=== PATIENT | female | born 1995 | race Caucasian/White ===

== ENCOUNTER 2023-04-08 17:54 | Emergency (ER) | payer OTHER ==
--- NOTE | 2023-04-08 18:06 | ED ---
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 She presents the ER today for evaluation of persistent infection despite recent antibiotic treatment. Patient states that about a month ago she noted these red bumps pustules on her legs she was seen at the urgent care closer to her [place] in [place]. She was prescribed 7 days of Bactrim which she completed. Patient stated that the redness and pain seem to improve during the antibiotics but since that time is progressively worsened. Today she noted worsening spreading redness on the anterior medial surface surrounding one of the pustules and was concerned the infection was getting worse so she came back to the ER. Patient denies any fevers chills nausea or vomiting. - Related Data Previous Rx's Medication Instructions Recorded Chlorhexidine Gluconate [Hibiclens] 1 applic TOPICAL DIRECTED #118 04/08/23 ml Mupirocin 2% Oint [Bactroban 2% 1 applic NASAL BID #22 gm 04/08/23 Oint] Sulfamethox-Tmp 800-160Mg [Bactrim 1 tab PO Q12HR 14 Days #28 tab 04/08/23 DS 800-160 mg] Allergies Allergy/AdvReac Type Severity Reaction Status Date / Time amoxicillin Allergy Anaphylaxis Verified 04/08/23 18:00 diphenhydramine Allergy Anaphylaxis Verified 04/08/23 18:00 [From Benadryl] piperacillin [From Zosyn] Allergy Anaphylaxis Verified 04/08/23 18:00 tazobactam [From Zosyn] Allergy Anaphylaxis Verified 04/08/23 18:00 vancomycin Allergy Anaphylaxis Verified 04/08/23 18:00 Review of Systems ROS Statement: Those systems with pertinent positive or pertinent negative responses have been documented in the HPI. ROS Other: All systems not noted in ROS Statement are negative. Past Medical History Past Medical History: Diabetes Mellitus Additional Past Medical History / Comment(s): Pots History of Any Multi-Drug Resistant Organisms: None Reported Past Surgical History: No Surgical Hx Reported Past Psychological History: ADD/ADHD Smoking Status: Current every day smoker Past Alcohol Use History: Occasional Past Drug Use History: Marijuana General Exam Limitations: no limitations General appearance: alert Head exam: Present: atraumatic Eye exam: Present: PERRL ENT exam: Present: other (Poor dentition with multiple caries) Respiratory exam: Absent: respiratory distress Cardiovascular Exam: Present: regular rate GI/Abdominal exam: Absent: distended Rectal exam: Present: deferred Extremities exam: Present: full ROM. Absent: pedal edema Neurological exam: Present: alert, oriented X3 Psychiatric exam: Present: normal affect, normal mood Skin exam: Present: other (There are multiple small pustules on the leg appears to be a folliculitis with some areas of secondary infection. Left lateral leg has large pustule that feels quite fluctuant. Medial side has a area of cellulitis approximately 4 x 6 cm.) Course Vital Signs 04/08/23 17:57 Temperature 98.4 F Pulse Rate 112 H Respiratory 20 Rate Blood Pressure 151/79 O2 Sat by Pulse 96 Oximetry Procedures - Incision & Drainage Consent Obtained: verbal consent Site: lower extremity I&D Cleaning Method: Alcohol Wipe Ultrasound used: No Needle Aspiration Performed?: Yes Irrigation Performed?: No I&D Drainage Obtained: Pus Insertion of drain: No Culture Obtained?: Yes Patient Tolerated Procedure: well, no complications Medical Decision Making - Medical Decision Making Was pt. sent in by a medical professional or institution (LAUREN Winter, PARACHUTE ACCESSORIES ATTACHER, urgent care, hospital, or long term...) When possible be specific @ -No Did you speak to anyone other than the patient for history (EMS, parent, family, police, friend...)? What history was obtained from this source @ -No Did you review nursing and triage notes (agree or disagree)? Why? @ -I reviewed and agree with nursing and triage notes Were old charts reviewed (outside hosp., previous admission, EMS record, old EKG, old radiological studies, urgent care reports/EKG's, long term records)? Report findings @ -No old charts were reviewed Differential Diagnosis (chest pain, altered mental status, abdominal pain women, abdominal pain men, vaginal bleeding, weakness, fever, dyspnea, syncope, headache, dizziness, GI bleed, back pain, seizure, CVA, palpatations, mental health)? @ -Cellulitis, abscess EKG interpreted by me (3pts min.). @ -As above X-rays interpreted by me (1pt min.). @ -None done CT interpreted by me (1pt min.). @ -None done U/S interpreted by me (1pt. min.). @ -None done What testing was considered but not performed or refused? (CT, X-rays, U/S, labs)? Why? @ -None What meds were considered but not given or refused? Why? @ -None Did you discuss the management of the patient with other professionals (professionals i.e. , PA, PARACHUTE ACCESSORIES ATTACHER, lab, RT, psych nurse, manager social responsibility, ingredient mixer, teacher, administrative services officer, porter sample case)? Give summary @ -No Was smoking cessation discussed for >3mins.? @ -No Was critical care preformed (if so, how long)? @ -No Were there social determinants of health that impacted care today? How? (Homelessness, low income, unemployed, alcoholism, drug addiction, transportation, low edu. Level, literacy, decrease access to med. care, senior care, rehab)? @ -No Was there de-escalation of care discussed even if they declined (Discuss DNR or withdrawal of care, Hospice)? DNR status @ -No What co-morbidities impacted this encounter? (DM, HTN, Smoking, COPD, CAD, Cancer, CVA, ARF, Chemo, Hep., AIDS, mental health diagnosis, sleep apnea, morbid obesity)? @ -None Was patient admitted / discharged? Hospital course, mention meds given and route, prescriptions, significant lab abnormalities, going to OR and other pertinent info. @ -Discharged The patient was seen and evaluated, history was obtained from the patient. Physical exam reveals multiple pustules. Pustule in the left lateral leg was unroofed with a 16-gauge needle and approximately 2 cc of purulent Brad and was drained a culture was obtained. Pustule on the medial side was also unroofed but less than 1 cc of fluid was drained. Patient will be treated with a longer course of Bactrim because she responded to this recently. I also discussed with patient decontamination of MRSA with Hibiclens and mupirocin. Both of these were prescribed. Undiagnosed new problem with uncertain prognosis? @ -No Drug Therapy requiring intensive monitoring for toxicity (Heparin, Nitro, Insulin, Cardizem)? @ -No Were any procedures done? @ -Yes, I&D Diagnosis/symptom? @ -Abscess and cellulitis Acute, or Chronic, or Acute on Chronic? @ -Acute, recurrent Uncomplicated (without systemic symptoms) or Complicated (systemic symptoms)? @ -Uncomplicated Side effects of treatment? @ -No Exacerbation, Progression, or Severe Exacerbation? @ -No Poses a threat to life or bodily function? How? (Chest pain, USA, [place], pneumonia, PE, COPD, DKA, ARF, appy, cholecystitis, CVA, Diverticulitis, Homicidal, Suicidal, threat to staff... and all critical care pts) @ -Unlikely Disposition Clinical Impression: Cellulitis and abscess of left leg Disposition: HOME SELF-CARE Condition: Stable Additional Instructions: As discussed you are going to do a longer course of Bactrim, 14 days You can also begin the MRSA decontamination protocol. You are to shower and wash with the Hibiclens soap from the neck down 2 times daily for 5 days 2 times a month on those same days apply the mupirocin ointment into your nose twice daily. I recommend doing this on the -5 and the 15- Prescriptions: Sulfamethox-Tmp 800-160Mg [Bactrim DS 800-160 mg] 1 tab PO Q12HR 14 Days #28 tab Mupirocin 2% Oint [Bactroban 2% Oint] 1 applic NASAL BID #22 gm Chlorhexidine Gluconate [Hibiclens] 1 applic TOPICAL DIRECTED #118 ml Is patient prescribed a controlled substance at d/c from ED?: No Referrals: None,Stated [Primary Care Provider] - 1-2 days
[2023-04-08 18:14] VITALS: TEMP 98.4
[2023-04-08 19:36] VITALS: BP 136/78; PULSE 68; RESP 18
== END 2023-04-08 19:17 | disposition home or self-care (01) ==
LOC: EC 17:54
DX: L03.116 Cellulitis of left lower limb (principal); L02.416 Cutaneous abscess of left lower limb; E11.9 Type 2 diabetes mellitus without complications; F17.200 Nicotine dependence, unspecified, uncomplicated; F12.90 Cannabis use, unspecified, uncomplicated; Z86.59 Personal history of other mental and behavioral disorders; Z88.0 Allergy status to penicillin; Z88.1 Allergy status to other antibiotic agents; Z88.8 Allergy status to other drugs, medicaments and biological substances
CPT/HCPCS: 10060; 87070; 87205; 99282

== ENCOUNTER 2023-06-10 21:51 | Emergency (ER) | payer OTHER ==
[2023-06-10] MEDS: ONDANSETRON ODT 8 MG TAB.RAPDIS PO STA (22:47)
[2023-06-10 23:08] LABS: Basophils % (A) 0 %; Eosinophils # (A) 0.1 k/uL (0-0.7); Eosinophils % (A) 1 %; HCT 40.9 % (34.0-46.0); HGB 13.7 gm/dL (11.4-16.0); Lymphocytes % (A) 15 %; MCH 27.2 pg (25.0-35.0); MCHC 33.4 g/dL (31.0-37.0); MCV 81.2 fL (80.0-100.0); Monocytes # (A) 0.2 k/uL (0-1.0); Monocytes % (A) 3 %; Neutrophils # (A) 5.1 k/uL (1.3-7.7); Neutrophils % (A) 79 %; Platelet Count 225 k/uL (150-450); RBC 5.03 m/uL (3.80-5.40); RDW 13.3 % (11.5-15.5); WBC 6.4 k/uL (3.8-10.6)
[2023-06-10] MEDS: ACETAMINOPHEN TAB 500 MG TAB PO STA (23:08)
[2023-06-10] MEDS: IBUPROFEN 600 MG TAB PO STA (23:08)
[2023-06-10 23:18] LABS: Appearance,Urine Clear (Clear); Bilirubin,Urine Negative (Negative); Blood,Urine Negative (Negative); Color,Urine Yellow; Glucose,Urine (UA) 4+ (Negative); Ketones,Urine Negative (Negative); Leukocyte Esterase,Urine Negative (Negative); Nitrite,Urine Negative (Negative); PH, Urine 5.5 (5.0-8.0); Protein,Urine Negative (Negative); Specific Gravity,Urine 1.032 (1.001-1.035); Urobilinogen,Urine <2.0 mg/dL (<2.0)
[2023-06-11 00:21] LABS: ALT 13 U/L (4-34); AST 18 U/L (14-36); African American GFR (CKD) >90 (>60 ml/min/1.73 sqM); Albumin 3.9 g/dL (3.5-5.0); Alkaline Phosphatase 92 U/L (38-126); Amylase 44 U/L (30-110); Anion Gap 10 mmol/L; Blood Urea Nitrogen 13 mg/dL (7-17); Calcium 9.2 mg/dL (8.4-10.2); Carbon Dioxide 15 mmol/L (22-30); Chloride 108 mmol/L (98-107); Glucose 308 mg/dL (74-99); Lipase 82 U/L (23-300); Non-African American GFR(CKD) >90 (>60 ml/min/1.73 sqM); Potassium 4.6 mmol/L (3.5-5.1); Sodium 133 mmol/L (137-145); Total Bilirubin 0.8 mg/dL (0.2-1.3); Total Protein 6.9 g/dL (6.3-8.2)
[2023-06-11 00:32] VITALS: RESP 18
--- NOTE | 2023-06-11 00:55 | XR ---
EXAM: XR Abdomen, 1 View CLINICAL HISTORY: ITS.REASON XR Reason: abdominal pain TECHNIQUE: Frontal supine view of the abdomen/pelvis. COMPARISON: No relevant prior studies available. FINDINGS: Gastrointestinal tract: Air distended small bowel measuring up to 4.4 cm, concerning for bowel obstruction. Recommend CT scan of the abdomen and pelvis. Bones/joints: Unremarkable. No acute fracture. IMPRESSION: Air distended small bowel measuring up to 4.4 cm, concerning for bowel obstruction. Recommend CT scan of the abdomen and pelvis.
--- NOTE | 2023-06-11 02:11 | CT ---
EXAM: CT Abdomen and Pelvis With Intravenous Contrast CLINICAL HISTORY: ITS.REASON CT Reason: lower abdominal pain TECHNIQUE: Axial computed tomography images of the abdomen and pelvis with intravenous contrast. CTDI is 27 mGy and DLP is 1476.8 mGy-cm. This CT exam was performed using one or more of the following dose reduction techniques: automated exposure control, adjustment of the mA and/or kV according to patient size, and/or use of iterative reconstruction technique. COMPARISON: No relevant prior studies available. FINDINGS: Lung bases: Unremarkable. No mass. No consolidation. ABDOMEN: Liver: Unremarkable. No mass. Gallbladder and bile ducts: Unremarkable. No calcified stones. No ductal dilation. Pancreas: Unremarkable. No mass. No ductal dilation. Spleen: Unremarkable. No splenomegaly. Adrenals: Unremarkable. No mass. Kidneys and ureters: Unremarkable. No solid mass. No hydronephrosis. Stomach and bowel: Liquid stool in the colon, with diarrheal disease. No obstruction. No mucosal thickening. PELVIS: Appendix: No findings to suggest acute appendicitis. Bladder: Unremarkable. No mass. Reproductive: Unremarkable as visualized. ABDOMEN and PELVIS: Intraperitoneal space: Unremarkable. No free air. No significant fluid collection. Bones/joints: No acute fracture. No dislocation. Soft tissues: Unremarkable. Vasculature: Unremarkable. No abdominal aortic aneurysm. Lymph nodes: Unremarkable. No enlarged lymph nodes. IMPRESSION: Liquid stool in the colon, with diarrheal disease.
[2023-06-11] MEDS: SODIUM CHLORIDE 0.9% 500 ML 500 ML IV ONE (02:15)
[2023-06-11] MEDS: SODIUM CHLORIDE 0.9% 1,000 ML IV ONE (02:15)
--- NOTE | 2023-06-11 03:15 | ED ---
Abdominal Pain HPI - General Chief Complaint: Abdominal Pain Stated Complaint: Vomiting Source: patient Mode of arrival: ambulatory Limitations: no limitations - History of Present Illness Initial Comments: 27-year-old female presenting to the ED with complaints of nausea vomiting diarrhea. Patient reports for the last 2 weeks has had some lower abdominal pain. Over the past 2 days has developed nausea, vomiting, nonbloody diarrhea. No fever or chills. No chest pain shortness of breath. No other complaints at this time. - Related Data Previous Rx's Medication Instructions Recorded Chlorhexidine Gluconate [Hibiclens] 1 applic TOPICAL DIRECTED #118 04/08/23 ml Mupirocin 2% Oint [Bactroban 2% 1 applic NASAL BID #22 gm 04/08/23 Oint] Sulfamethox-Tmp 800-160Mg [Bactrim 1 tab PO Q12HR 14 Days #28 tab 04/08/23 DS 800-160 mg] Loperamide [Imodium] 2 mg PO DIRECTED #16 capsule 06/11/23 Allergies Allergy/AdvReac Type Severity Reaction Status Date / Time amoxicillin Allergy Anaphylaxis Verified 06/10/23 22:09 diphenhydramine Allergy Anaphylaxis Verified 06/10/23 22:09 [From Benadryl] piperacillin [From Zosyn] Allergy Anaphylaxis Verified 06/10/23 22:09 tazobactam [From Zosyn] Allergy Anaphylaxis Verified 06/10/23 22:09 vancomycin Allergy Anaphylaxis Verified 06/10/23 22:09 Review of Systems ROS Statement: Those systems with pertinent positive or pertinent negative responses have been documented in the HPI. ROS Other: All systems not noted in ROS Statement are negative. Past Medical History Past Medical History: Diabetes Mellitus Additional Past Medical History / Comment(s): Pots History of Any Multi-Drug Resistant Organisms: None Reported Past Surgical History: No Surgical Hx Reported Past Psychological History: ADD/ADHD Smoking Status: Current every day smoker Past Alcohol Use History: Occasional Past Drug Use History: Marijuana General Exam Limitations: no limitations General appearance: alert, in no apparent distress Eye exam: Present: normal appearance Neck exam: Present: normal inspection Respiratory exam: Present: normal lung sounds bilaterally GI/Abdominal exam: Present: soft (Diffuse lower abdominal tenderness to palpation. No rebound guarding or rigidity.) Neurological exam: Present: alert, oriented X3 Skin exam: Present: warm, dry Course Vital Signs 06/10/23 06/11/23 06/11/23 22:06 00:14 02:14 Temperature 102.9 F H 100.8 F H 98.3 F Pulse Rate 109 H 98 70 Respiratory 20 18 18 Rate Blood Pressure 148/90 120/83 104/70 O2 Sat by Pulse 99 100 99 Oximetry Medical Decision Making - Medical Decision Making Was pt. sent in by a medical professional or institution (, PA, SLICE CUTTING MACHINE OPERATOR, urgent care, hospital, or [facility]...) When possible be specific @ -No Did you speak to anyone other than the patient for history (EMS, parent, family, police, friend...)? What history was obtained from this source @ -No Did you review nursing and triage notes (agree or disagree)? Why? @ -I reviewed and agree with nursing and triage notes Were old charts reviewed (outside hosp., previous admission, EMS record, old EKG, old radiological studies, urgent care reports/EKG's, [facility] records)? Report findings @ -No old charts were reviewed Differential Diagnosis (chest pain, altered mental status, abdominal pain women, abdominal pain men, vaginal bleeding, weakness, fever, dyspnea, syncope, heada rafael, dizziness, GI bleed, back pain, seizure, CVA, palpatations, mental health, musculoskeletal)? @ -Differential Abdominal Pain Women: Appendicitis, Cholecystitis, diverticulosis, ischemic bowel, pancreatitis, hepatitis, UTI, gastroenteritis, AAA, incarcerated hernia, bowel obstruction, constipation, inflammatory bowel, hepatitis, peptic ulcer disease, splenic infarction, perforated viscus, vulvitis, ovarian torsion, PID, kidney stone, placenta abruption, this is not meant to be an all-inclusive list EKG interpreted by me (3pts min.). @ -None X-rays interpreted by me (1pt min.). @ -X-ray of the abdomen interpreted by me which did show distended small bowel concerning for bowel obstruction. CT interpreted by me (1pt min.). @ -CT performed due to the above interpreted me which did not show evidence of bowel obstruction however did show evidence of diarrheal disease U/S interpreted by me (1pt. min.). @ -None done What testing was considered but not performed or refused? (CT, X-rays, U/S, labs)? Why? @ -None What meds were considered but not given or refused? Why? @ -None Did you discuss the management of the patient with other professionals (professionals i.e. , PA, SLICE CUTTING MACHINE OPERATOR, lab, RT, psych nurse, forensic social worker, source water protection specialist, teacher, armed security officer, director of casework services)? Give summary @ -No Was smoking cessation discussed for >3mins.? @ -No Was critical care preformed (if so, how long)? @ -No Were there social determinants of health that impacted care today? How? (Homelessness, low income, unemployed, alcoholism, drug addiction, transportation, low edu. Level, literacy, decrease access to med. care, [facility], rehab)? @ -No Was there de-escalation of care discussed even if they declined (Discuss DNR or withdrawal of care, Hospice)? DNR status @ -No What co-morbidities impacted this encounter? (DM, HTN, Smoking, COPD, CAD, Cancer, CVA, ARF, Chemo, Hep., AIDS, mental health diagnosis, sleep apnea, morbid obesity)? @ -None Was patient admitted / discharged? Hospital course, mention meds given and route, prescriptions, significant lab abnormalities, going to OR and other [facility] info. @ -Discharge 27-year-old female presents to the ED with complaints of lower abdominal pain for the past 2 weeks and over the last 2 days has developed nausea vomiting diarrhea. Laboratory studies reviewed. CBC unremarkable. Chemistry panel does show elevated glucose and urine does show glucosuria. Imaging studies show evidence of acute diarrheal disease. With onset pain in the last 2 days likely viral in nature. Patient provided prescription for Imodium and discharged home in stable condition. Advise close follow-up with PCP and discussed strict return precautions which patient verbalized agreement. Undiagnosed new problem with uncertain prognosis? @ -No Drug Therapy requiring intensive monitoring for toxicity (Heparin, Nitro, Insulin, Cardizem)? @ -No Were any procedures done? @ -No Diagnosis/symptom? @ -Gastroenteritis Acute, or Chronic, or Acute on Chronic? @ -Acute Uncomplicated (without systemic symptoms) or Complicated (systemic symptoms)? @ -Uncomplicated Side effects of treatment? @ -No Exacerbation, Progression, or Severe Exacerbation? @ -No Poses a threat to life or bodily function? How? (Chest pain, [place], [place], pneumonia, PE, COPD, DKA, ARF, appy, cholecystitis, CVA, Diverticulitis, Homicidal, Suicidal, threat to staff... and all critical care pts) @ -No - Lab Data Result diagrams: 06/10/23 22:13 06/10/23 22:13 Lab Results 06/10/23 06/10/23 06/10/23 Range/Units 22:13 22:13 22:13 WBC 6.4 (3.8-10.6) k/uL RBC 5.03 (3.80-5.40) m/uL Hgb 13.7 (11.4-16.0) gm/dL Hct 40.9 (34.0-46.0) % MCV 81.2 (80.0-100.0) fL MCH 27.2 (25.0-35.0) pg MCHC 33.4 (31.0-37.0) g/dL RDW 13.3 (11.5-15.5) % Plt Count 225 (150-450) k/uL MPV 10.0 Neutrophils % 79 % Lymphocytes % 15 % Monocytes % 3 % Eosinophils % 1 % Basophils % 0 % Neutrophils # 5.1 (1.3-7.7) k/uL Lymphocytes # 1.0 (1.0-4.8) k/uL Monocytes # 0.2 (0-1.0) k/uL Eosinophils # 0.1 (0-0.7) k/uL Basophils # 0.0 (0-0.2) k/uL Sodium (137-145) mmol/L Potassium (3.5-5.1) mmol/L Chloride (98-107) mmol/L Carbon Dioxide (22-30) mmol/L Anion Gap mmol/L BUN (7-17) mg/dL Creatinine (0.52-1.04) mg/dL Est GFR (CKD-EPI)AfAm (>60 ml/min/1.73 sqM) Est GFR (CKD-EPI)NonAf (>60 ml/min/1.73 sqM) Glucose (74-99) mg/dL Calcium (8.4-10.2) mg/dL Total Bilirubin (0.2-1.3) mg/dL AST (14-36) U/L ALT (4-34) U/L Alkaline Phosphatase (38-126) U/L Total Protein (6.3-8.2) g/dL Albumin (3.5-5.0) g/dL Amylase (30-110) U/L Lipase (23-300) U/L Urine Color Yellow Urine Appearance Clear (Clear) Urine pH 5.5 (5.0-8.0) Ur Specific [place] 1.032 (1.001-1.035) Urine Protein Negative (Negative) Urine Glucose (UA) 4+ H (Negative) Urine Ketones Negative (Negative) Urine Blood Negative (Negative) Urine Nitrite Negative (Negative) Urine Bilirubin Negative (Negative) Urine Urobilinogen <2.0 (<2.0) mg/dL Ur Leukocyte Esterase Negative (Negative) Urine HCG, Qual Not Detected (Not Detectd) Influenza Type A (PCR) (Not Detectd) Influenza Type B (PCR) (Not Detectd) RSV (PCR) (Not Detectd) SARS-CoV-2 (PCR) (Not Detectd) 06/10/23 06/10/23 Range/Units 22:13 22:13 WBC (3.8-10.6) k/uL RBC (3.80-5.40) m/uL Hgb (11.4-16.0) gm/dL Hct (34.0-46.0) % MCV (80.0-100.0) fL MCH (25.0-35.0) pg MCHC (31.0-37.0) g/dL RDW (11.5-15.5) % Plt Count (150-450) k/uL MPV Neutrophils % % Lymphocytes % % Monocytes % % Eosinophils % % Basophils % % Neutrophils # (1.3-7.7) k/uL Lymphocytes # (1.0-4.8) k/uL Monocytes # (0-1.0) k/uL Eosinophils # (0-0.7) k/uL Basophils # (0-0.2) k/uL Sodium 133 L (137-145) mmol/L Potassium 4.6 (3.5-5.1) mmol/L Chloride 108 H (98-107) mmol/L Carbon Dioxide 15 L (22-30) mmol/L Anion Gap 10 mmol/L BUN 13 (7-17) mg/dL Creatinine 0.48 L (0.52-1.04) mg/dL Est GFR (CKD-EPI)AfAm >90 (>60 ml/min/1.73 sqM) Est GFR (CKD-EPI)NonAf >90 (>60 ml/min/1.73 sqM) Glucose 308 H (74-99) mg/dL Calcium 9.2 (8.4-10.2) mg/dL Total Bilirubin 0.8 (0.2-1.3) mg/dL AST 18 (14-36) U/L ALT 13 (4-34) U/L Alkaline Phosphatase 92 (38-126) U/L Total Protein 6.9 (6.3-8.2) g/dL Albumin 3.9 (3.5-5.0) g/dL Amylase 44 (30-110) U/L Lipase 82 (23-300) U/L Urine Color Urine Appearance (Clear) Urine pH (5.0-8.0) Ur Specific [place] (1.001-1.035) Urine Protein (Negative) Urine Glucose (UA) (Negative) Urine Ketones (Negative) Urine Blood (Negative) Urine Nitrite (Negative) Urine Bilirubin (Negative) Urine Urobilinogen (<2.0) mg/dL Ur Leukocyte Esterase (Negative) Urine HCG, Qual (Not Detectd) Influenza Type A (PCR) Not Detected (Not Detectd) Influenza Type B (PCR) Not Detected (Not Detectd) RSV (PCR) Not Detected (Not Detectd) SARS-CoV-2 (PCR) Not Detected (Not Detectd) Disposition Clinical Impression: Gastroenteritis Disposition: HOME SELF-CARE Condition: Good Instructions (If sedation given, give patient instructions): Gastroenteritis (ED) Additional Instructions: Please return to the Emergency Department if symptoms worsen or any other concerns. Please follow-up with primary care. Prescriptions: Loperamide [Imodium] 2 mg PO DIRECTED #16 capsule Is patient prescribed a controlled substance at d/c from ED?: No Referrals: None,Stated [Primary Care Provider] - 1-2 days Time of Disposition: 03:22
[2023-06-11 04:11] VITALS: BP 118/78; PULSE 77; TEMP 98.1
== END 2023-06-11 04:05 | disposition home or self-care (01) ==
LOC: EC 21:51
DX: K52.9 Noninfective gastroenteritis and colitis, unspecified (principal); F17.200 Nicotine dependence, unspecified, uncomplicated; Z88.0 Allergy status to penicillin; Z88.8 Allergy status to other drugs, medicaments and biological substances; Z11.52 Encounter for screening for COVID-19
CPT/HCPCS: 36415; 80053; 82150; 83690; 85025; 81003; 81025; 87636; 74018; 74177; 99284; 96360; 96361; Q9967

== ENCOUNTER 2023-08-05 03:31 | Emergency (ER) | payer OTHER ==
[2023-08-05 03:53] VITALS: BP 114/77; PULSE 107; RESP 18; TEMP 98.1
[2023-08-05 05:25] LABS: Amphetamine Screen,Urine Not Detected (NotDetected); Barbiturate Screen,Urine Not Detected (NotDetected); Benzodiazepines Screen,Urine Not Detected (NotDetected); Cocaine Screen,Urine Not Detected (NotDetected); Methadone Screen, Urine Not Detected (NotDetected); Opiate Screen,Urine Not Detected (NotDetected); Oxycodone Screen, Urine Not Detected (NotDetected); Phencyclidine Screen,Urine Not Detected (NotDetected); Tricyclic Antidepressant,Urine Not Detected (NotDetected); Urn Cannabinoid Scrn Not Detected (NotDetected)
== END 2023-08-05 06:03 | disposition left against medical advice (07) ==
LOC: EC 03:31
DX: Z00.8 Encounter for other general examination (principal); Z53.21 Procedure and treatment not carried out due to patient leaving prior to being seen by health care provider
CPT/HCPCS: 80306; 99499

== ENCOUNTER → 2023-08-31 | Outpatient (CLI) | payer OTHER ==
--- NOTE | 2023-09-01 07:38 | XR ---
EXAMINATION TYPE: XR KUB DATE OF EXAM: 08/31/2023 COMPARISON: 06/11/2023 INDICATION: Chronic pain TECHNIQUE: Single view abdomen supine view FINDINGS: There is a normal bowel gas pattern. Psoas margins are normal. No organomegaly is present. IMPRESSION: 1. Unremarkable Abdomen
--- NOTE | 2023-09-01 09:19 | XR ---
EXAMINATION TYPE: XR knee complete bilateral DATE OF EXAM: 08/31/2023 COMPARISON: None HISTORY: Pain, chronic TECHNIQUE: Bilateral knees 3 views each FINDINGS: Joint spaces are preserved. No acute fractures or dislocations evident. No joint effusions are evident. Follow up exams can be performed as clinically indicated. IMPRESSION: 1. Unremarkable bilateral knees
--- NOTE | 2023-09-01 09:20 | XR ---
EXAMINATION TYPE: XR shoulder complete BILAT DATE OF EXAM: 08/31/2023 COMPARISON: NONE HISTORY: Pain TECHNIQUE: Bilateral Shoulders examined in 3 projections. FINDINGS: The humeral head articulates with the glenoid. The acromio-clavicular junction is normal. No acute fractures or dislocations are evident. A follow up study can be performed 7-10 days from acute trauma for continued pain. MRI can be perfor med if soft tissue evaluation would be of benefit. IMPRESSION: 1. No acute osseous abnormality bilateral shoulders.
== END | disposition home or self-care (01) ==
LOC: RADXRMAIN 15:16
PROVIDERS: ATTEND Internal Medicine
DX: M25.561 Pain in right knee (principal); M25.562 Pain in left knee; M25.511 Pain in right shoulder; M25.512 Pain in left shoulder; R10.84 Generalized abdominal pain
CPT/HCPCS: 74018

== ENCOUNTER 2023-10-28 13:10 | Emergency (ER) | payer OTHER ==
[2023-10-28 13:15] VITALS: TEMP 98.4
--- NOTE | 2023-10-28 13:43 | ED ---
Abdominal Pain HPI - General Source: patient, RN notes reviewed Mode of arrival: ambulatory Limitations: no limitations <Alexis Beltrán - Last Filed: 10/28/23 16:32> <Carlos Luke - Last Filed: 10/28/23 16:45> - General Chief Complaint: Abdominal Pain Stated Complaint: back pain Time Seen by Provider: 10/28/23 13:20 - History of Present Illness Initial Comments: 28-year-old female presents emergency department complaint abdominal pain. Patient states she had pain for last few days right upper quadrant to right flank and back pain. Patient states it is worse with movement denies any significant nausea vomit diarrhea constipation or dysuria no prior abdominal surgeries. Patient is a known diabetic (Alexis Beltrán) - Related Data Home Medications Medication Instructions Recorded Confirmed Cetirizine HCl [Zyrtec] 10 mg PO DAILY PRN 10/28/23 10/28/23 INSULIN LISPRO (For Pump) [humaLOG 0.01 units SQ-PUMP CONTINUOUS 10/28/23 10/28/23 (For Pump)] Insulin Glargine,Hum.rec.anlog 15 units SQ DAILY PRN 10/28/23 10/28/23 [Lantus Solostar Pen] Insulin Lispro [humaLOG Kwikpen] See Protocol SQ TID-W/MEALS PRN 10/28/23 10/28/23 Testosterone Cypionate 80 mg IM MO 10/28/23 10/28/23 [Depo-Testosterone] Ziprasidone [Geodon] 20 mg PO BID 10/28/23 10/28/23 Allergies Allergy/AdvReac Type Severity Reaction Status Date / Time amoxicillin Allergy Anaphylaxis Verified 10/28/23 16:32 diphenhydramine Allergy Anaphylaxis Verified 10/28/23 16:32 [From Benadryl] piperacillin [From Zosyn] Allergy Anaphylaxis Verified 10/28/23 16:32 tazobactam [From Zosyn] Allergy Anaphylaxis Verified 10/28/23 16:32 vancomycin Allergy Anaphylaxis Verified 10/28/23 16:32 Review of Systems ROS Other: All systems not noted in ROS Statement are negative. <Alexis Beltrán - Last Filed: 10/28/23 16:32> ROS Other: All systems not noted in ROS Statement are negative. <Carlos Luke - Last Filed: 10/28/23 16:45> ROS Statement: Those systems with pertinent positive or pertinent negative responses have been documented in the HPI. Past Medical History Past Medical History: Diabetes Mellitus Additional Past Medical History / Comment(s): Pots History of Any Multi-Drug Resistant Organisms: MRSA Date of last positivie culture/infection: 04/08/23 MDRO Source:: Left leg Past Surgical History: No Surgical Hx Reported Past Psychological History: ADD/ADHD, Anxiety, Depression, PTSD Smoking Status: Current every day smoker, Vaper Past Alcohol Use History: Rare Past Drug Use History: Marijuana <Alexis Beltrán - Last Filed: 10/28/23 16:32> General Exam Limitations: no limitations General appearance: alert, in no apparent distress Head exam: Present: atraumatic, normocephalic, normal inspection Neck exam: Present: normal inspection, full ROM. Absent: tenderness, meni ngismus, lymphadenopathy Respiratory exam: Present: normal lung sounds bilaterally. Absent: respiratory distress, wheezes, rales, rhonchi, stridor Cardiovascular Exam: Present: regular rate, normal rhythm, normal heart sounds. Absent: systolic murmur, diastolic murmur, rubs, gallop, clicks GI/Abdominal exam: Present: soft, tenderness, normal bowel sounds. Absent: distended, guarding, rebound, rigid Back exam: Absent: CVA tenderness (R), CVA tenderness (L) <Alexis Beltrán - Last Filed: 10/28/23 16:32> Course Vital Signs 10/28/23 13:13 Temperature 98.4 F Pulse Rate 90 Respiratory 20 Rate Blood Pressure 131/86 O2 Sat by Pulse 99 Oximetry Medical Decision Making - Lab Data Result diagrams: 10/28/23 13:59 10/28/23 13:59 <Alexis Beltrán M - Last Filed: 10/28/23 16:32> - Lab Data Result diagrams: 10/28/23 13:59 10/28/23 13:59 <Carlos Luke - Last Filed: 10/28/23 16:45> - Medical Decision Making Was pt. sent in by a medical professional or institution (, PA, FINAL FINISHER, urgent care, hospital, or skilled nursing...) When possible be specific @ -No Did you speak to anyone other than the patient for history (EMS, parent, family, police, friend...)? What history was obtained from this source @ -No Did you review nursing and triage notes (agree or disagree)? Why? @ -I reviewed and agree with nursing and triage notes Were old charts reviewed (outside hosp., previous admission, EMS record, old EK G, old radiological studies, urgent care reports/EKG's, skilled nursing records)? Report findings @ -No old charts were reviewed Differential Diagnosis (chest pain, altered mental status, abdominal pain women, abdominal pain men, vaginal bleeding, weakness, fever, dyspnea, syncope, headache, dizziness, GI bleed, back pain, seizure, CVA, palpatations, mental health, musculoskeletal)? @ -Differential Abdominal Pain Women: Appendicitis, Cholecystitis, diverticulosis, ischemic bowel, pancreatitis, he patitis, UTI, gastroenteritis, AAA, incarcerated hernia, bowel obstruction, constipation, inflammatory bowel, hepatitis, peptic ulcer disease, splenic infarction, perforated viscus, vulvitis, ovarian torsion, PID, kidney stone, placenta abruption, this is not meant to be an all-inclusive list EKG interpreted by me (3pts min.). @ -none X-rays interpreted by me (1pt min.). @ -None done CT interpreted by me (1pt min.). @ -None done U/S interpreted by me (1pt. min.). @ -See below What testing was considered but not performed or refused? (CT, X-rays, U/S, labs)? Why? @ -None What meds were considered but not given or refused? Why? @ -None Did you discuss the management of the patient with other professionals (professionals i.e. , PA, FINAL FINISHER, lab, RT, psych nurse, social services designee, fuel cell designer, teacher, real estate loan officer, shoe caser)? Give summary @ -No Was smoking cessation discussed for >3mins.? @ -No Was critical care preformed (if so, how long)? @ -No Were there social determinants of health that impacted care today? How? (Homelessness, low income, unemployed, alcoholism, drug addiction, transp ortation, low edu. Level, literacy, decrease access to med. care, fci, rehab)? @ -No Was there de-escalation of care discussed even if they declined (Discuss DNR or withdrawal of care, Hospice)? DNR status @ -No What co-morbidities impacted this encounter? (DM, HTN, Smoking, COPD, CAD, Cancer, CVA, ARF, Chemo, Hep., AIDS, mental health diagnosis, sleep apnea, morbid obesity)? @ -Diabetes (Leigh AnnAlexis Melgar) Ultrasound shows the gallstone without secondary signs of acute cholecystitis. Other than hyperglycemia laboratory testing is unremarkable. No leukocytosis. Patient feeling better on reevaluation. She is given outpatient referral for general surgery. (Carlos Luke) - Lab Data Lab Results 10/28/23 10/28/23 10/28/23 Range/Units 13:59 13:59 13:59 WBC 7.0 (3.8-10.6) k/uL RBC 5.09 (3.80-5.40) m/uL Hgb 13.5 (11.4-16.0) gm/dL Hct 41.0 (34.0-46.0) % MCV 80.6 (80.0-100.0) fL MCH 26.5 (25.0-35.0) pg MCHC 32.9 (31.0-37.0) g/dL RDW 14.5 (11.5-15.5) % Plt Count 222 (150-450) k/uL MPV 9.2 Neutrophils % 58 % Lymphocytes % 33 % Monocytes % 4 % Eosinophils % 3 % Basophils % 1 % Neutrophils # 4.1 (1.3-7.7) k/uL Lymphocytes # 2.3 (1.0-4.8) k/uL Monocytes # 0.3 (0-1.0) k/uL Eosinophils # 0.2 (0-0.7) k/uL Basophils # 0.1 (0-0.2) k/uL Sodium (137-145) mmol/L Potassium (3.5-5.1) mmol/L Chloride (98-107) mmol/L Carbon Dioxide (22-30) mmol/L Anion Gap mmol/L BUN (7-17) mg/dL Creatinine (0.52-1.04) mg/dL Est GFR (CKD-EPI)AfAm (>60 ml/min/1.73 sqM) Est GFR (CKD-EPI)NonAf (>60 ml/min/1.73 sqM) Glucose (74-99) mg/dL POC Glucose (mg/dL) (70-110) mg/dL POC Glu Licensing Representative ID Lactic Ac Sepsis Rflx Plasma Lactic Acid [place] (0.7-2.0) mmol/L Calcium (8.4-10.2) mg/dL Total Bilirubin (0.2-1.3) mg/dL AST (14-36) U/L ALT (4-34) U/L Alkaline Phosphatase (38-126) U/L Total Protein (6.3-8.2) g/dL Albumin (3.5-5.0) g/dL Lipase (23-300) U/L Urine Color Light Yellow Urine Appearance Clear (Clear) Urine pH 6.5 (5.0-8.0) Ur Specific [place] 1.041 H (1.001-1.035) Urine Protein Negative (Negative) Urine Glucose (UA) 4+ H (Negative) Urine Ketones Negative (Negative) Urine Blood Negative (Negative) Urine Nitrite Negative (Negative) Urine Bilirubin Negative (Negative) Urine Urobilinogen <2.0 (<2.0) mg/dL Ur Leukocyte Esterase Small H (Negative) Urine RBC 2 (0-5) /hpf Urine WBC 4 (0-5) /hpf Ur Squamous Epith Cells 2 (0-4) /hpf Urine Mucus Rare H (None) /hpf Urine HCG, Qual Not Detected (Not Detectd) 10/28/23 10/28/23 10/28/23 Range/Units 13:59 13:59 14:26 WBC (3.8-10.6) k/uL RBC (3.80-5.40) m/uL Hgb (11.4-16.0) gm/dL Hct (34.0-46.0) % MCV (80.0-100.0) fL MCH (25.0-35.0) pg MCHC (31.0-37.0) g/dL RDW (11.5-15.5) % Plt Count (150-450) k/uL MPV Neutrophils % % Lymphocytes % % Monocytes % % Eosinophils % % Basophils % % Neutrophils # (1.3-7.7) k/uL Lymphocytes # (1.0-4.8) k/uL Monocytes # (0-1.0) k/uL Eosinophils # (0-0.7) k/uL Basophils # (0-0.2) k/uL Sodium 134 L (137-145) mmol/L Potassium 4.8 (3.5-5.1) mmol/L Chloride 102 (98-107) mmol/L Carbon Dioxide 23 (22-30) mmol/L Anion Gap 9 mmol/L BUN 4 L (7-17) mg/dL Creatinine 0.49 L (0.52-1.04) mg/dL Est GFR (CKD-EPI)AfAm >90 (>60 ml/min/1.73 sqM) Est GFR (CKD-EPI)NonAf >90 (>60 ml/min/1.73 sqM) Glucose 365 H (74-99) mg/dL POC Glucose (mg/dL) (70-110) mg/dL POC Glu Licensing Representative ID Lactic Ac Sepsis Rflx Y Plasma Lactic Acid [place] 2.2 H* (0.7-2.0) mmol/L Calcium 9.1 (8.4-10.2) mg/dL Total Bilirubin 0.9 (0.2-1.3) mg/dL AST 23 (14-36) U/L ALT 11 (4-34) U/L Alkaline Phosphatase 90 (38-126) U/L Total Protein 7.0 (6.3-8.2) g/dL Albumin 4.1 (3.5-5.0) g/dL Lipase 50 (23-300) U/L Urine Color Urine Appearance (Clear) Urine pH (5.0-8.0) Ur Specific [place] (1.001-1.035) Urine Protein (Negative) Urine Glucose (UA) (Negative) Urine Ketones (Negative) Urine Blood (Negative) Urine Nitrite (Negative) Urine Bilirubin (Negative) Urine Urobilinogen (<2.0) mg/dL Ur Leukocyte Esterase (Negative) Urine RBC (0-5) /hpf Urine WBC (0-5) /hpf Ur Squamous Epith Cells (0-4) /hpf Urine Mucus (None) /hpf Urine HCG, Qual (Not Detectd) 10/28/23 10/28/23 Range/Units 15:38 16:42 WBC (3.8-10.6) k/uL RBC (3.80-5.40) m/uL Hgb (11.4-16.0) gm/dL Hct (34.0-46.0) % MCV (80.0-100.0) fL MCH (25.0-35.0) pg MCHC (31.0-37.0) g/dL RDW (11.5-15.5) % Plt Count (150-450) k/uL MPV Neutrophils % % Lymphocytes % % Monocytes % % Eosinophils % % Basophils % % Neutrophils # (1.3-7.7) k/uL Lymphocytes # (1.0-4.8) k/uL Monocytes # (0-1.0) k/uL Eosinophils # (0-0.7) k/uL Basophils # (0-0.2) k/uL Sodium (137-145) mmol/L Potassium (3.5-5.1) mmol/L Chloride (98-107) mmol/L Carbon Dioxide (22-30) mmol/L Anion Gap mmol/L BUN (7-17) mg/dL Creatinine (0.52-1.04) mg/dL Est GFR (CKD-EPI)AfAm (>60 ml/min/1.73 sqM) Est GFR (CKD-EPI)NonAf (>60 ml/min/1.73 sqM) Glucose (74-99) mg/dL POC Glucose (mg/dL) 305 H 262 H (70-110) mg/dL POC Glu Licensing Representative ID Philip, Allyson Honeycombe, Chiquis Lactic Ac Sepsis Rflx Plasma Lactic Acid [place] (0.7-2.0) mmol/L Calcium (8.4-10.2) mg/dL Total Bilirubin (0.2-1.3) mg/dL AST (14-36) U/L ALT (4-34) U/L Alkaline Phosphatase (38-126) U/L Total Protein (6.3-8.2) g/dL Albumin (3.5-5.0) g/dL Lipase (23-300) U/L Urine Color Urine Appearance (Clear) Urine pH (5.0-8.0) Ur Specific [place] (1.001-1.035) Urine Protein (Negative) Urine Glucose (UA) (Negative) Urine Ketones (Negative) Urine Blood (Negative) Urine Nitrite (Negative) Urine Bilirubin (Negative) Urine Urobilinogen (<2.0) mg/dL Ur Leukocyte Esterase (Negative) Urine RBC (0-5) /hpf Urine WBC (0-5) /hpf Ur Squamous Epith Cells (0-4) /hpf Urine Mucus (None) /hpf Urine HCG, Qual (Not Detectd) Disposition <Alexis Beltrán - Last Filed: 10/28/23 16:32> Is patient prescribed a controlled substance at d/c from ED?: No Time of Disposition: 16:45 <Carlos Luke - Last Filed: 10/28/23 16:45> Clinical Impression: Abdominal pain, Gallstone Disposition: HOME SELF-CARE Condition: Fair Instructions (If sedation given, give patient instructions): Abdominal Pain (ED), Biliary Colic (ED), Gallstones (ED) Referrals: Nathanael Badillo DO [Primary Care Provider] - 1-2 days Sonia Small MD [STAFF PHYSICIAN] - 1-2 days
[2023-10-28] MEDS: SODIUM CHLORIDE 0.9% 1,000 ML IV STA (13:57)
[2023-10-28] MEDS: SODIUM CHLORIDE 0.9% 500 ML 500 ML IV STA (13:57)
[2023-10-28] MEDS: KETOROLAC 15 MG/ML 1 ML VIAL IVP STA (13:57)
[2023-10-28 14:12] LABS: Basophils # (A) 0.1 k/uL (0-0.2); Basophils % (A) 1 %; Eosinophils # (A) 0.2 k/uL (0-0.7); Eosinophils % (A) 3 %; HGB 13.5 gm/dL (11.4-16.0); Lymphocytes # (A) 2.3 k/uL (1.0-4.8); Lymphocytes % (A) 33 %; MCH 26.5 pg (25.0-35.0); MCHC 32.9 g/dL (31.0-37.0); MCV 80.6 fL (80.0-100.0); Mean Platelet Volume 9.2; Monocytes # (A) 0.3 k/uL (0-1.0); Monocytes % (A) 4 %; Neutrophils # (A) 4.1 k/uL (1.3-7.7); Neutrophils % (A) 58 %; Platelet Count 222 k/uL (150-450); RBC 5.09 m/uL (3.80-5.40); RDW 14.5 % (11.5-15.5)
[2023-10-28 14:21] LABS: Appearance,Urine Clear (Clear); Bilirubin,Urine Negative (Negative); Blood,Urine Negative (Negative); Color,Urine Light Yellow; Glucose,Urine (UA) 4+ (Negative); Ketones,Urine Negative (Negative); Leukocyte Esterase,Urine Small (Negative); Mucus,Urine Rare /hpf; Nitrite,Urine Negative (Negative); PH, Urine 6.5 (5.0-8.0); Protein,Urine Negative (Negative); RBC,Urine 2 /hpf (0-5); Specific Gravity,Urine 1.041 (1.001-1.035); Squamous Epithelial Cell,Urine 2 /hpf (0-4); Urobilinogen,Urine <2.0 mg/dL (<2.0); WBC,Urine 4 /hpf (0-5)
[2023-10-28 14:22] LABS: ALT 11 U/L (4-34); African American GFR (CKD) >90 (>60 ml/min/1.73 sqM); Albumin 4.1 g/dL (3.5-5.0); Anion Gap 9 mmol/L; Blood Urea Nitrogen 4 mg/dL (7-17); Calcium 9.1 mg/dL (8.4-10.2); Carbon Dioxide 23 mmol/L (22-30); Chloride 102 mmol/L (98-107); Glucose 365 mg/dL (74-99); Lipase 50 U/L (23-300); Non-African American GFR(CKD) >90 (>60 ml/min/1.73 sqM); Sodium 134 mmol/L (137-145); Total Bilirubin 0.9 mg/dL (0.2-1.3)
[2023-10-28 14:23] LABS: AST 23 U/L (14-36); Alkaline Phosphatase 90 U/L (38-126); Potassium 4.8 mmol/L (3.5-5.1)
[2023-10-28] MEDS: SODIUM CHLORIDE 0.9% 1,000 ML IV ONE (15:32)
[2023-10-28] MEDS: SODIUM CHLORIDE 0.9% 500 ML 500 ML IV ONE (15:33)
[2023-10-28 15:40] LABS: Glucose,Whole Blood 305 mg/dL (70-110)
--- NOTE | 2023-10-28 16:39 | US ---
EXAMINATION TYPE: US gallbladder DATE OF EXAM: 10/28/2023 COMPARISON: NONE CLINICAL INDICATION: Female, 28 years old with history of pain; RUQ pain, back pain for 2 days. TECHNIQUE: Multiple sonographic images of the right upper quadrant are obtained. FINDINGS: EXAM MEASUREMENTS: Liver Length: 17.7 cm Gallbladder Wall: 0.2 cm CBD: 0.3 cm Right Kidney: 11.5 x 4.8 x 4.9 cm CELL ATTENDANT NOTES:*Limitations due to large amount of overlying bowel gas Pancreas: Obscured by bowel gas Liver: visualized portions appear wnl Gallbladder: stone = 1.8cm Evidence for sonographic Kevin's sign: no CBD: limited evaluation. visualized portion appears wnl Right Kidney: no evidence of hydronephrosis IMPRESSION: Cholelithiasis.
[2023-10-28 16:43] LABS: Glucose,Whole Blood 262 mg/dL (70-110)
[2023-10-28] MEDS: INSULIN REGULAR 100 UNIT/ML VIAL (IV) IV ONE (17:00)
[2023-10-28 17:22] VITALS: BP 122/80; PULSE 70; RESP 16
== END 2023-10-28 17:22 | disposition home or self-care (01) ==
LOC: EDSEX → EC 13:10
DX: M54.50 Low back pain, unspecified
CPT/HCPCS: 36415; 76705; 80053; 81001; 81025; 83605; 83690; 85025; 96361; 96374; 99284

== ENCOUNTER 2023-10-29 15:09 | Emergency (ER) | payer OTHER ==
--- NOTE | 2023-10-29 16:48 | ED ---
General Adult HPI - General Chief complaint: Back Pain/Injury Stated complaint: Abdominal/Back Pain Time Seen by Provider: 10/29/23 16:47 Source: patient, RN notes reviewed Mode of arrival: ambulatory Limitations: no limitations - History of Present Illness Initial comments: 28-year-old unisex female presented to the ER with a chief complaint of abdomina l pain. Patient states for the past 3 days she has been having right upper quadrant abdominal pain with radiation to bilateral back. She is endorsing nausea denies vomiting. Denies any constipation or diarrhea. Patient was seen here yesterday and diagnosed with a gallstone. Patient states since then the pain has worsened. She is taken [id number] ibuprofen without relief. Has not taken anything for nausea. Denies any fevers or chills. Patient is a known type I diabetic. Reports a decreased appetite. - Related Data Home Medications Medication Instructions Recorded Confirmed Cetirizine HCl [Zyrtec] 10 mg PO DAILY PRN 10/28/23 10/28/23 INSULIN LISPRO (For Pump) [humaLOG 0.01 units SQ-PUMP CONTINUOUS 10/28/23 10/28/23 (For Pump)] Insulin Glargine,Hum.rec.anlog 15 units SQ DAILY PRN 10/28/23 10/28/23 [Lantus Solostar Pen] Insulin Lispro [humaLOG Kwikpen] See Protocol SQ TID-W/MEALS PRN 10/28/23 10/28/23 Testosterone Cypionate 80 mg IM MO 10/28/23 10/28/23 [Depo-Testosterone] Ziprasidone [Geodon] 20 mg PO BID 10/28/23 10/28/23 Previous Rx's Medication Instructions Recorded Ketorolac [Toradol] 10 mg PO TID #15 tab 10/29/23 Nitrofurantoin Monohyd/M-Cryst 100 mg PO Q12HR #14 cap 10/29/23 [Macrobid] Ondansetron Odt [Zofran Odt] 4 mg PO Q8HR PRN #10 tab 10/29/23 Allergies Allergy/AdvReac Type Severity Reaction Status Date / Time amoxicillin Allergy Anaphylaxis Verified 10/29/23 15:15 diphenhydramine Allergy Anaphylaxis Verified 10/29/23 15:15 [From Benadryl] piperacillin [From Zosyn] Allergy Anaphylaxis Verified 10/29/23 15:15 tazobactam [From Zosyn] Allergy Anaphylaxis Verified 10/29/23 15:15 vancomycin Allergy Anaphylaxis Verified 10/29/23 15:15 Review of Systems ROS Statement: Those systems with pertinent positive or pertinent negative responses have been documented in the HPI. ROS Other: All systems not noted in ROS Statement are negative. Past Medical History Past Medical History: Diabetes Mellitus Additional Past Medical History / Comment(s): Pots History of Any Multi-Drug Resistant Organisms: MRSA Date of last positivie culture/infection: 04/08/23 MDRO Source:: Left leg Past Surgical History: No Surgical Hx Reported Past Psychological History: ADD/ADHD, Anxiety, Depression, PTSD Smoking Status: Current every day smoker, Vaper Past Alcohol Use History: Rare Past Drug Use History: Marijuana General Exam Limitations: no limitations General appearance: alert, in no apparent distress Respiratory exam: Present: normal lung sounds bilaterally. Absent: respiratory distress, wheezes, rales, rhonchi, stridor Cardiovascular Exam: Present: regular rate, normal rhythm, normal heart sounds. Absent: systolic murmur, diastolic murmur, rubs, gallop, clicks GI/Abdominal exam: Present: soft, tenderness (RUQ), normal bowel sounds Back exam: Present: CVA tenderness (R), CVA tenderness (L) Neurological exam: Present: alert, oriented X3, CN II-XII intact Skin exam: Present: warm, dry, intact, normal color. Absent: rash Course Vital Signs 10/29/23 10/29/23 15:12 16:15 Temperature 99.6 F 99.0 F Pulse Rate 112 H 86 Respiratory 16 18 Rate Blood Pressure 110/73 136/76 O2 Sat by Pulse 97 99 Oximetry Medical Decision Making - Medical Decision Making Was pt. sent in by a medical professional or institution (, PA, WOOD PATTERN MAKER, urgent care, hospital, or detention...) When possible be specific @ -No Did you speak to anyone other than the patient for history (EMS, parent, family, police, friend...)? What history was obtained from this source @ -No Did you review nursing and triage notes (agree or disagree)? Why? @ -I reviewed and agree with nursing and triage notes Were old charts reviewed (outside hosp., previous admission, EMS record, old EKG, old radiological studies, urgent care reports/EKG's, detention records)? Report findings @ -Yes I reviewed ER visit from 10-28-2023. Patient seen here from similar complaints. Gallbladder ultrasound at that time negative for acute cholecystitis. There is a gallstone present. Differential Diagnosis (chest pain, altered mental status, abdominal pain women, abdominal pain men, vaginal bleeding, weakness, fever, dyspnea, syncope, headache, dizziness, GI bleed, back pain, seizure, CVA, palpatations, mental health, musculoskeletal)? @ -Differential Abdominal Pain Women:Appendicitis, Cholecystitis, diverticulosis, ischemic bowel, pancreatitis, hepatitis, UTI, gastroenteritis, AAA, incarcerated hernia, bowel obstruction, constipation, inflammatory bowel, hepatitis, peptic ulcer disease, splenic infarction, perforated viscus, vulvitis, ovarian torsion, PID, kidney stone, placenta abruption, this is not meant to be an all-inclusive list EKG interpreted by me (3pts min.). @ -None X-rays interpreted by me (1pt min.). @ -None done CT interpreted by me (1pt min.). @ -CT abdomen pelvis negative for acute intra-abdominal process. U/S interpreted by me (1pt. min.). @ -None done What testing was considered but not performed or refused? (CT, X-rays, U/S, labs)? Why? @ -None What meds were considered but not given or refused? Why? @ -None Did you discuss the management of the patient with other professionals (professionals i.e. , PA, WOOD PATTERN MAKER, lab, RT, psych nurse, social work manager, retail sales teammate, teacher, compliance review officer, dependency case manager)? Give summary @ -No Was smoking cessation discussed for >3mins.? @ -No Was critical care preformed (if so, how long)? @ -No Were there social determinants of health that impacted care today? How? (Homelessness, low income, unemployed, alcoholism, drug addiction, transportation, low edu. Level, literacy, decrease access to med. care, penitentiary, rehab)? @ -No Was there de-escalation of care discussed even if they declined (Discuss DNR or withdrawal of care, Hospice)? DNR status @ -No What co-morbidities impacted this encounter? (DM, HTN, Smoking, COPD, CAD, Cancer, CVA, ARF, Chemo, Hep., AIDS, mental health diagnosis, sleep apnea, morbid obesity)? @ -Obese, type I diabetic Was patient admitted / discharged? Hospital course, mention meds given and route, prescriptions, significant lab abnormalities, going to OR and other perti nent info. @ -Discharge. 28-year-old unisex female presented to the ER with a chief comp laint of right upper quadrant abdominal pain. History and physical exam completed. Vitals stable. Patient in no signs of acute distress and nontoxic- appearing. Abdominal exam remarkable for tenderness to the right upper quadrant with mild radiation to the right lower quadrant. No rebound or guarding. Normal bowel sounds. Laboratory studies unremarkable. Patient is hyperglycemic which is likely due to type 1 diabetes. Urinalysis showing concerning signs of infection with 8 WBCs and moderate leukocyte esterases patient will be started on Macrobid. Urine sent for culture. Urine hCG negative. CT abdomen pelvis negative for acute intra-abdominal process. Symptoms believed to be biliary colic in nature. GI and general surgery referrals given. Zofran, Toradol and Macrobid prescribed. Advise close follow-up with PCP and specialist. Strict return parameters discussed. Patient discharged in stable condition. Patient verbally expressed understanding agree with care plan. Case discussed with ED attending, Dr. Nelson. Undiagnosed new problem with uncertain prognosis? @ -No Drug Therapy requiring intensive monitoring for toxicity (Heparin, Nitro, Insulin, Cardizem)? @ -No Were any procedures done? @ -No Diagnosis/symptom? @ -Gallstones/abdominal pain/UTI Acute, or Chronic, or Acute on Chronic? @ -Acute Uncomplicated (without systemic symptoms) or Complicated (systemic symptoms)? @ -Uncomplicated Side effects of treatment? @ -No Exacerbation, Progression, or Severe Exacerbation? @ -No Poses a threat to life or bodily function? How? (Chest pain, [place], [place], pneumonia, PE, COPD, DKA, ARF, appy, cholecystitis, CVA, Diverticulitis, Homicidal, Suicidal, threat to staff... and all critical care pts) @ -No - Lab Data Result diagrams: 10/29/23 16:57 10/29/23 16:57 Lab Results 10/29/23 10/29/23 10/29/23 Range/Units 16:57 16:57 16:57 WBC 5.9 (3.8-10.6) k/uL RBC 5.07 (4.30-5.90) m/uL Hgb 13.8 (13.0-17.5) gm/dL Hct 41.0 (39.0-53.0) % MCV 80.9 (80.0-100.0) fL MCH 27.1 (25.0-35.0) pg MCHC 33.5 (31.0-37.0) g/dL RDW 14.4 (11.5-15.5) % Plt Count 215 (150-450) k/uL MPV 9.6 Neutrophils % 74 % Lymphocytes % 20 % Monocytes % 5 % Eosinophils % 1 % Basophils % 1 % Neutrophils # 4.4 (1.3-7.7) k/uL Lymphocytes # 1.2 (1.0-4.8) k/uL Monocytes # 0.3 (0-1.0) k/uL Eosinophils # 0.0 (0-0.7) k/uL Basophils # 0.0 (0-0.2) k/uL Sodium 129 L (137-145) mmol/L Potassium 3.9 (3.5-5.1) mmol/L Chloride 102 (98-107) mmol/L Carbon Dioxide 24 (22-30) mmol/L Anion Gap 3 mmol/L BUN 3 L (9-20) mg/dL Creatinine 0.51 L (0.66-1.25) mg/dL Est GFR (CKD-EPI)AfAm >90 (>60 ml/min/1.73 sqM) Est GFR (CKD-EPI)NonAf >90 (>60 ml/min/1.73 sqM) Glucose 261 H (74-99) mg/dL Plasma Lactic Acid [place] (0.7-2.0) mmol/L Calcium 9.0 (8.4-10.2) mg/dL Total Bilirubin 0.7 (0.2-1.3) mg/dL AST 15 L (17-59) U/L ALT 10 (4-49) U/L Alkaline Phosphatase 105 (38-126) U/L Total Protein 6.7 (6.3-8.2) g/dL Albumin 4.0 (3.5-5.0) g/dL Amylase 34 (30-110) U/L Lipase 34 (23-300) U/L Urine Color Yellow Urine Appearance Cloudy (Clear) Urine pH 6.5 (5.0-8.0) Ur Specific Thor 1.027 (1.001-1.035) Urine Protein Trace H (Negative) Urine Glucose (UA) 4+ H (Negative) Urine Ketones Trace H (Negative) Urine Blood Negative (Negative) Urine Nitrite Negative (Negative) Urine Bilirubin Negative (Negative) Urine Urobilinogen 3.0 (<2.0) mg/dL Ur Leukocyte Esterase Moderate H (Negative) Urine RBC 3 (0-5) /hpf Urine WBC 8 H (0-5) /hpf Ur Squamous Epith Cells 3 (0-4) /hpf Urine Bacteria Rare H (None) /hpf Urine Mucus Few (None) /hpf Urine HCG, Qual (Not Detectd) 10/29/23 10/29/23 Range/Units 16:57 16:57 WBC (3.8-10.6) k/uL RBC (4.30-5.90) m/uL Hgb (13.0-17.5) gm/dL Hct (39.0-53.0) % MCV (80.0-100.0) fL MCH (25.0-35.0) pg MCHC (31.0-37.0) g/dL RDW (11.5-15.5) % Plt Count (150-450) k/uL MPV Neutrophils % % Lymphocytes % % Monocytes % % Eosinophils % % Basophils % % Neutrophils # (1.3-7.7) k/uL Lymphocytes # (1.0-4.8) k/uL Monocytes # (0-1.0) k/uL Eosinophils # (0-0.7) k/uL Basophils # (0-0.2) k/uL Sodium (137-145) mmol/L Potassium (3.5-5.1) mmol/L Chloride (98-107) mmol/L Carbon Dioxide (22-30) mmol/L Anion Gap mmol/L BUN (9-20) mg/dL Creatinine (0.66-1.25) mg/dL Est GFR (CKD-EPI)AfAm (>60 ml/min/1.73 sqM) Est GFR (CKD-EPI)NonAf (>60 ml/min/1.73 sqM) Glucose (74-99) mg/dL Plasma Lactic Acid [place] 1.1 (0.7-2.0) mmol/L Calcium (8.4-10.2) mg/dL Total Bilirubin (0.2-1.3) mg/dL AST (17-59) U/L ALT (4-49) U/L Alkaline Phosphatase (38-126) U/L Total Protein (6.3-8.2) g/dL Albumin (3.5-5.0) g/dL Amylase (30-110) U/L Lipase (23-300) U/L Urine Color Urine Appearance (Clear) Urine pH (5.0-8.0) Ur Specific Thor (1.001-1.035) Urine Protein (Negative) Urine Glucose (UA) (Negative) Urine Ketones (Negative) Urine Blood (Negative) Urine Nitrite (Negative) Urine Bilirubin (Negative) Urine Urobilinogen (<2.0) mg/dL Ur Leukocyte Esterase (Negative) Urine RBC (0-5) /hpf Urine WBC (0-5) /hpf Ur Squamous Epith Cells (0-4) /hpf Urine Bacteria (None) /hpf Urine Mucus (None) /hpf Urine HCG, Qual Not Detected (Not Detectd) - Radiology Data Radiology results: report reviewed, image reviewed Disposition Clinical Impression: Abdominal pain, Gallstone, UTI (urinary tract infection) Disposition: HOME SELF-CARE Condition: Stable Instructions (If sedation given, give patient instructions): Biliary Colic (ED), Gallstones (ED), Abdominal Pain (ED) Additional Instructions: Follow-up with general surgery and/or GI for further evaluation and treatment. You may take Zofran and Toradol for symptom control. Return to the ER for any new or worsening concerns. Prescriptions: Nitrofurantoin Monohyd/M-Cryst [Macrobid] 100 mg PO Q12HR #14 cap Ketorolac [Toradol] 10 mg PO TID #15 tab Ondansetron Odt [Zofran Odt] 4 mg PO Q8HR PRN #10 tab PRN Reason: Nausea Is patient prescribed a controlled substance at d/c from ED?: No Referrals: Nathanael Badillo, [Primary Care Provider] - 1-2 days Rebecca Benson MD [STAFF PHYSICIAN] - 1-2 days Kodi Weiner MD [STAFF PHYSICIAN] - 1-2 days Time of Disposition: 19:05
[2023-10-29] MEDS: ONDANSETRON 4 MG/2 ML VIAL IVP STA (17:07)
[2023-10-29] MEDS: KETOROLAC 15 MG/ML 1 ML VIAL IVP STA (17:07)
[2023-10-29] MEDS: SODIUM CHLORIDE 0.9% 1,000 ML IV STA (17:08)
[2023-10-29 17:15] LABS: Appearance,Urine Cloudy (Clear); Bacteria,Urine Rare /hpf; Basophils % (A) 1 %; Bilirubin,Urine Negative (Negative); Blood,Urine Negative (Negative); Color,Urine Yellow; Eosinophils % (A) 1 %; Glucose,Urine (UA) 4+ (Negative); HGB 13.8 gm/dL (13.0-17.5); Ketones,Urine Trace (Negative); Leukocyte Esterase,Urine Moderate (Negative); Lymphocytes # (A) 1.2 k/uL (1.0-4.8); Lymphocytes % (A) 20 %; MCH 27.1 pg (25.0-35.0); MCHC 33.5 g/dL (31.0-37.0); MCV 80.9 fL (80.0-100.0); Mean Platelet Volume 9.6; Monocytes # (A) 0.3 k/uL (0-1.0); Monocytes % (A) 5 %; Mucus,Urine Few /hpf; Neutrophils # (A) 4.4 k/uL (1.3-7.7); Neutrophils % (A) 74 %; Nitrite,Urine Negative (Negative); PH, Urine 6.5 (5.0-8.0); Platelet Count 215 k/uL (150-450); Protein,Urine Trace (Negative); RBC 5.07 m/uL (4.30-5.90); RBC,Urine 3 /hpf (0-5); RDW 14.4 % (11.5-15.5); Specific Gravity,Urine 1.027 (1.001-1.035); Squamous Epithelial Cell,Urine 3 /hpf (0-4); WBC 5.9 k/uL (3.8-10.6); WBC,Urine 8 /hpf (0-5)
[2023-10-29 17:28] LABS: ALT 10 U/L (4-49); AST 15 U/L (17-59); African American GFR (CKD) >90 (>60 ml/min/1.73 sqM); Alkaline Phosphatase 105 U/L (38-126); Amylase 34 U/L (30-110); Anion Gap 3 mmol/L; Blood Urea Nitrogen 3 mg/dL (9-20); Carbon Dioxide 24 mmol/L (22-30); Chloride 102 mmol/L (98-107); Glucose 261 mg/dL (74-99); Lipase 34 U/L (23-300); Non-African American GFR(CKD) >90 (>60 ml/min/1.73 sqM); Potassium 3.9 mmol/L (3.5-5.1); Sodium 129 mmol/L (137-145); Total Bilirubin 0.7 mg/dL (0.2-1.3); Total Protein 6.7 g/dL (6.3-8.2)
--- NOTE | 2023-10-29 18:48 | CT ---
EXAMINATION TYPE: CT abdomen pelvis w con DATE OF EXAM: 10/29/2023 COMPARISON: 06/11/2023 INDICATION: abdominal/flank pain DLP: 1639.2 mGycm, Automated exposure control for dose reduction was used. CONTRAST: 100 cc mL of Isovue 300. Study performed without Oral Contrast TECHNIQUE: Axial images were obtained from above the diaphragm to the pubic rami in the axial plane a t 5 mm thick sections. Reconstructed images are reviewed on the computer in the coronal plane. FINDINGS: Limited CT sections are obtained the lung bases. The lung bases are clear. CT ABDOMEN: Liver: Normal Spleen: Normal Pancreas: Normal Adrenal glands: The adrenal glands are normal. Gallbladder: Normal Kidneys: No masses are evident. No hydronephrosis is present. No cysts are present. Delayed images were obtained through the kidneys, which remain unremarkable. Aorta: Normal Inferior vena cava: Normal. CT PELVIS: Loops of bowel within the abdomen and pelvis are normal. Study is without oral contrast limiting evaluation. Appendix: Not identified. No dilated tubular structure or inflammatory changes present. Urinary bladder: Normal. Genitourinary structures: Uterus appears normal. Adnexa appear normal. Osseous structures: No suspicious lytic or sclerotic lesions. IMPRESSION: 1. No suspicious abnormality to account for right upper quadrant pain
[2023-10-29 18:58] VITALS: RESP 18; TEMP 99
[2023-10-29 19:30] VITALS: BP 108/74; PULSE 98
== END 2023-10-29 19:29 | disposition home or self-care (01) ==
LOC: EDSEX → EC 15:09
DX: K80.20 Calculus of gallbladder without cholecystitis without obstruction (principal); N39.0 Urinary tract infection, site not specified; F17.290 Nicotine dependence, other tobacco product, uncomplicated; F12.90 Cannabis use, unspecified, uncomplicated; Z88.0 Allergy status to penicillin; Z88.1 Allergy status to other antibiotic agents; Z88.8 Allergy status to other drugs, medicaments and biological substances
CPT/HCPCS: 36415; 74177; 80053; 81001; 81025; 82150; 83605; 83690; 85025; 96361; 96374; 96375; 99284

== ENCOUNTER 2023-11-12 07:03 | Day surgery (SDC) | payer OTHER ==
[2023-11-12] MEDS ORDERED: LIDOCAINE 1% (10MG/ML) FOR IV START INTRADERMA PRN (07:15)
[2023-11-12] MEDS: IV FLUID CONTINUATION 1,000 ML IV ONE ×2 (07:22→09:26)
[2023-11-12 07:53] LABS: Glucose,Whole Blood 401 mg/dL (70-110)
[2023-11-12] MEDS: ONDANSETRON 4 MG/2 ML VIAL IVP ONE (08:03)
[2023-11-12] MEDS: DEXAMETHASONE SOD PHOSPHATE 4 MG/ML 1 ML VIAL IV ONE (08:03)
[2023-11-12] MEDS: LACTATED RINGERS 1,000 ML IV SCH (08:03)
[2023-11-12] MEDS: INSULIN REGULAR 100 UNIT/ML VIAL (IV) IV ONE ×2 (08:26→12:02)
[2023-11-12 08:40] LABS: Glucose,Whole Blood 383 mg/dL (70-110)
[2023-11-12] MEDS ORDERED: ROCURONIUM 10 MG/ML (5 ML VIAL) IV ONE (08:49)
[2023-11-12] MEDS ORDERED: NEOSTIGMINE 1 MG/ML 10 ML VIAL ONE (08:49)
[2023-11-12] MEDS ORDERED: PROPOFOL 10 MG/ML 20 ML VIAL IV ONE (08:49)
[2023-11-12] MEDS ORDERED: KETOROLAC 15 MG/ML 1 ML VIAL ONE (08:49)
[2023-11-12] MEDS ORDERED: MIDAZOLAM 2 MG/2 ML VIAL ONE (08:49)
[2023-11-12] MEDS ORDERED: LIDOCAINE 1% INJ 10MG/ML (20 ML MDV) ONE (08:49)
[2023-11-12] MEDS ORDERED: SUCCINYLCHOLINE CHLORIDE 200 MG/10 ML VIAL IV ONE (08:49)
[2023-11-12] MEDS ORDERED: GLYCOPYRROLATE 0.2 MG/ML 2 ML VIAL ONE (08:49)
[2023-11-12] MEDS ORDERED: fentaNYL (PF) 50 MCG/ML 2 ML AMP ONE (08:49)
[2023-11-12] MEDS ORDERED: HYDROmorphone (PF) 1 MG/ML ONE (08:49)
[2023-11-12] MEDS: LIDOCAINE 1%-EPI 1:100,000 20 ML VIAL SQ ONE ×2 (08:52→09:27)
--- NOTE | 2023-11-12 10:00 | P.OP ---
Date of Procedure: 11/12/23 Preoperative Diagnosis: Cholecystitis Postoperative Diagnosis: Cholecystitis Implants: Laparoscopic cholecystectomy Anesthesia: KEENAN Surgeon: Kodi Weiner Estimated Blood Loss (ml): 5 Pathology: other (Gallbladder) Condition: stable Disposition: PACU Description of Procedure: The patient was placed on the operating table. The patient received a general endotracheal tube anesthesia. The patients abdomen was prepped and draped in the usual sterile fashion. Through an infraumbilical stab incision, the fascia of the anterior abdominal wall was grasped with a pair of Kochers and then the Veress needle was placed in the peritoneal cavity. Position of the Veress needle was confirmed with positive drop test. The abdomen was then insufflated. After adequate insufflation, the 10 mm trocar was placed in the peritoneal cavity. Following this the laparoscope was placed in the peritoneal cavity. The patient was placed in the head-up, right side up position and then a 5 mm trocar was placed in the right lateral and right subcostal position under direct visualization. A 8 mm trocar was placed in the epigastric position. The gallbladder was grasped in the fundus and infundibulum. Traction on the gallbladder was placed in the lateral and the cephalad positions. The triangle of Calot was visualized.. The cystic duct was bluntly dissected until the union of the cystic duct and common bile duct was seen. A critical view of safety was achieved. The cystic duct was then divided and sealed with the Harmonic scissors. A PDS Endoloop was then placed throughout the cystic duct stump. The cystic artery divided and sealed with the Harmonic scissors. The gallbladder was then removed from the liver bed using Harmonic scissors. The gallbladder was then extracted through the epigastric port site. Operative field was checked for any bleeding spots and Harmonic scissors was used to coagulate the liver bed. The abdomen was irrigated. The trocars were removed. The skin was closed using interrupted 3-0 Vicryl suture. Dermabond dressing were applied. The patient tolerated the procedure well.
[2023-11-12 10:07] LABS: Glucose,Whole Blood 382 mg/dL (70-110)
[2023-11-12] MEDS: INSULIN REGULAR 100 UNIT/ML VIAL (IM/SQ) SQ ONE (10:35)
[2023-11-12] MEDS: droPERidol 5 MG/2 ML VIAL IVP ONE (10:37)
[2023-11-12] MEDS: HYDROmorphone 0.5 MG/0.5 ML SYRINGE IVP PRN (11:01)
[2023-11-12 11:09] LABS: Glucose,Whole Blood 392 mg/dL (70-110)
[2023-11-12 12:01] LABS: Glucose,Whole Blood 377 mg/dL (70-110)
[2023-11-12 12:15] LABS: Glucose,Whole Blood 373 mg/dL (70-110)
[2023-11-12 13:56] LABS: Glucose,Whole Blood 326 mg/dL (70-110)
[2023-11-12 15:21] LABS: Basophils # (A) 0.1 k/uL (0-0.2); Basophils % (A) 0 %; Eosinophils # (A) 0.1 k/uL (0-0.7); Eosinophils % (A) 1 %; HCT 43.6 % (34.0-46.0); HGB 14.4 gm/dL (11.4-16.0); Lymphocytes % (A) 8 %; MCH 27.1 pg (25.0-35.0); MCV 81.9 fL (80.0-100.0); Mean Platelet Volume 10.7; Monocytes # (A) 0.2 k/uL (0-1.0); Monocytes % (A) 1 %; Neutrophils # (A) 11.4 k/uL (1.3-7.7); Neutrophils % (A) 89 %; Platelet Count 212 k/uL (150-450); RBC 5.33 m/uL (3.80-5.40); RDW 14.7 % (11.5-15.5); WBC 12.8 k/uL (3.8-10.6)
[2023-11-12] MEDS ORDERED: LORATADINE 10 MG TAB PO PRN (15:27)
[2023-11-12] MEDS ORDERED: ALPRAZolam 0.25 MG TAB PO PRN (15:32)
[2023-11-12 15:35] LABS: ALT 20 U/L (4-34); African American GFR (CKD) >90 (>60 ml/min/1.73 sqM); Albumin 4.2 g/dL (3.5-5.0); Anion Gap 12 mmol/L; Blood Urea Nitrogen 13 mg/dL (7-17); Calcium 9.3 mg/dL (8.4-10.2); Carbon Dioxide 20 mmol/L (22-30); Chloride 104 mmol/L (98-107); Glucose 313 mg/dL (74-99); Non-African American GFR(CKD) >90 (>60 ml/min/1.73 sqM); Sodium 136 mmol/L (137-145); Total Bilirubin 0.8 mg/dL (0.2-1.3); Total Protein 7.2 g/dL (6.3-8.2)
[2023-11-12 15:59] LABS: AST 44 U/L (14-36); Alkaline Phosphatase 101 U/L (38-126); Magnesium 1.5 mg/dL (1.6-2.3); Potassium 4.7 mmol/L (3.5-5.1)
[2023-11-12] MEDS ORDERED: INSULIN DETEMIR (LEVEMIR) 100 UNIT/ML SYR SQ SCH (16:00)
[2023-11-12 16:17] LABS: Glucose,Whole Blood 296 mg/dL (70-110)
[2023-11-12] MEDS: INSULIN ASPART (NovoLOG) 100 UNIT/ML VIAL SQ SCH (16:25)
[2023-11-12] MEDS: NICOTINE 14MG/24HR PATCH TRANSDERM SCH (17:41)
[2023-11-12] MEDS: INSULIN DETEMIR (LEVEMIR) 100 UNIT/ML SYR SQ SCH ×2 (17:55→21:24)
[2023-11-12] MEDS: HYDROcodone/APAP 5-325MG 1 EACH TAB PO PRN (18:01)
[2023-11-12 18:30] LABS: Appearance,Urine Clear (Clear); Bilirubin,Urine Negative (Negative); Blood,Urine Negative (Negative); Color,Urine Colorless; Glucose,Urine (UA) 4+ (Negative); Leukocyte Esterase,Urine Small (Negative); Mucus,Urine Rare /hpf; Nitrite,Urine Negative (Negative); PH, Urine 6.5 (5.0-8.0); Protein,Urine Negative (Negative); RBC,Urine 3 /hpf (0-5); Squamous Epithelial Cell,Urine 3 /hpf (0-4); Urobilinogen,Urine <2.0 mg/dL (<2.0); WBC,Urine 7 /hpf (0-5)
[2023-11-12 18:34] LABS: Ketones,Urine 2+ (Negative); Specific Gravity,Urine 1.048 (1.001-1.035)
[2023-11-12 21:10] LABS: Glucose,Whole Blood 345 mg/dL (70-110)
[2023-11-12] MEDS: HEPARIN SODIUM,PORCINE 5,000 UNIT/ML 1 ML VIAL SQ SCH (21:23)
[2023-11-12] MEDS: ZIPRASIDONE 20 MG CAP PO SCH (21:24)
--- NOTE | 2023-11-12 22:07 | CONS ---
CONSULTATION REASON FOR CONSULTATION: Advice regarding diabetes, other medical issues, requested by Dr. Weiner. HISTORY OF PRESENT ILLNESS: This is a 28-year-old woman with a past medical history of multiple medical problems including diabetes mellitus, hypertension, and hyperlipidemia, underwent laparoscopic cholecystectomy. The patient had insulin pump. Apparently, the patient was not using insulin pump because of supply issues. The patient was using only sliding scale coverage. The blood sugar was found to be elevated up to 300 and was given almost like 25 units of regular insulin. There is no history of any fever, rigors, or chills at this time. PAST MEDICAL HISTORY: Reviewed include diabetes mellitus type 2, POTS syndrome, MRSA, and remote history of substance abuse. REVIEW OF SYSTEMS: Fourteen-point review is negative except as mentioned earlier. CURRENT MEDICATIONS: Reviewed include Geodon. Dose and rest of medications reviewed. ALLERGIES: Amoxicillin, rest of allergies noted. PHYSICAL EXAMINATION: VITAL SIGNS: Pulse is 96, blood pressure 112/70, and respirations 18. HEENT: Conjunctivae normal. CARDIOVASCULAR: S1 and S2. RESPIRATION: Clear to auscultation. ABDOMEN: Soft, status post surgery. LEGS: No edema. NERVOUS SYSTEM: Nonfocal. SKIN: No ulcer, rash, bleeding. JOINTS: No active deforming arthropathy. LABORATORY DATA: WBC 12.2. Rest of the labs are noted. ASSESSMENT: 1. Status post laparoscopic cholecystectomy. 2. Diabetes mellitus, type 2 with hyperglycemia. 3. Gastroesophageal reflux disease. 4. Postural orthostatic tachycardia syndrome. 5. History of methicillin-resistant Staphylococcus aureus. 6. History of attention deficit disorder, attention deficit hyperactivity disorder, anxiety, depression. 7. Remote history of substance abuse including cocaine, heroin, and THC. RECOMMENDATION: This 28-year-old woman presented with multiple medical issues. We will monitor the patient closely. Continue the current medications. Recommend to initiate insulin 20 units subcu b.i.d., Accu-Cheks a.c. Also recommended the patient to bring the insulin pump and connected tomorrow morning. Otherwise, resume home medications will be continued. We will follow the patient closely with you. The patient may be asked to follow with the Primary Physician after discharge. Basic labs also will be obtained. MMODL / IJN: [id number] /
[2023-11-13 06:01] LABS: Glucose,Whole Blood 199 mg/dL (70-110)
[2023-11-13 09:03] VITALS: BP 102/68; PULSE 78; RESP 17; TEMP 97.4
[2023-11-13 09:05] LABS: Blood Urea Nitrogen 12.2 mg/dL (9.0-27.0); Calcium 9.1 mg/dL (8.7-10.3); Carbon Dioxide 23.7 mmol/L (21.6-31.8); Chloride 103 mmol/L (96-109); Glucose 216 mg/dL (70-110); Sodium 138 mmol/L (135-145)
[2023-11-13 09:06] LABS: Basophils # (A) 0.07 X 10*3/uL (0.00-0.10); Basophils % (A) 0.6 %; Eosinophils # (A) 0.01 X 10*3/uL (0.04-0.35); Eosinophils % (A) 0.1 %; HGB 12.7 g/dL (12.0-15.0); Lymphocytes # (A) 2.28 X 10*3/uL (0.90-5.00); Lymphocytes % (A) 20.4 %; MCH 26.8 pg (27.0-32.0); MCHC 33.4 g/dL (32.0-37.0); MCV 80.2 FL (80.0-97.0); Mean Platelet Volume 12.7 FL (9.5-12.2); Monocytes # (A) 0.74 X 10*3/uL (0.20-1.00); Monocytes % (A) 6.6 %; NRBC Per 100 WBC 0 X 10*3/uL (0.00-0.01); Neutrophils # (A) 8.02 X 10*3/uL (1.80-7.70); Neutrophils % (A) 71.9 %; Platelet Count 264 X 10*3/uL (140-440); RBC 4.74 X 10*6/uL (4.10-5.20); RDW 14.2 % (11.5-14.5); WBC 11.16 X 10*3/uL (4.50-10.00)
[2023-11-13 11:33] LABS: Glucose,Whole Blood 251 mg/dL (70-110)
--- NOTE | 2023-11-13 11:41 | P.DS ---
Providers Expected date of discharge: 11/13/23 Attending physician: Kodi Weiner Consults: 11/12/23 12:21 Consult Physician Routine Consulting Provider: Matias Zamarripa Consult Reason/Comments: Hyperglycemia post op Do you want consulting provider notified?: Yes Primary care physician: Stated None Hospital Course: Discharge diagnosis 1. Cholecystitis status post laparoscopic cholecystectomy 2. Diabetes mellitus type 1 with uncontrolled blood sugars Hospital course This is a 28-year-old female who had evidence of cholecystitis in the outpatient setting. Patient is status post laparoscopic cholecystectomy with Dr. Weiner. Patient tolerated surgery well. Her pain is controlled. She has been up and ambulating. She has been having flatus. She is tolerating diet. She is afebrile. She is stable for discharge. Patient seen by medicine service due to uncontrolled blood sugars. Patient has been cleared by medicine service for discharge. Patient to follow-up with her PCP this week for evaluation of her blood sugars. Please refer to chart for any further details. Physician Director [facility] note has been reviewed by physician. Signing provider agrees with the documented findings, assessment, and plan of care. Patient Condition at Discharge: Stable Plan - Discharge Summary Discharge Rx Participant: Yes New Discharge Prescriptions: New Acetaminophen Tab [Tylenol] 650 mg PO Q6H #30 tab Nicotine 14Mg/24Hr Patch [Habitrol] 1 patch TRANSDERM DAILY #30 patch Docusate [Colace] 100 mg PO BID #20 capsule Ibuprofen [Motrin] 600 mg PO Q6HR PRN #40 tab PRN Reason: Pain oxyCODONE HCL [OxyIR] 5 mg PO Q6H PRN 3 Days #10 tab PRN Reason: Pain Continue Ziprasidone [Geodon] 20 mg PO BID Insulin Lispro [humaLOG Kwikpen] See Protocol SQ TID-W/MEALS PRN PRN Reason: INSULIN PUMP FAILURE Cetirizine HCl [Zyrtec] 10 mg PO DAILY PRN PRN Reason: Allergy Symptoms Insulin Glargine,Hum.rec.anlog [Lantus Solostar Pen] 15 units SQ DAILY PRN PRN Reason: INSULIN PUMP FAILURE INSULIN LISPRO (For Pump) [humaLOG (For Pump)] 0.01 units SQ-PUMP CONTINUOUS Testosterone Cypionate [Depo-Testosterone] 80 mg SQ MO Discontinued Ketorolac [Toradol] 10 mg PO TID PRN PRN Reason: Pain Discharge Medication List Cetirizine HCl [Zyrtec] 10 mg PO DAILY PRN 10/28/23 [History] INSULIN LISPRO (For Pump) [humaLOG (For Pump)] 0.01 units SQ-PUMP CONTINUOUS 10/28/23 [History] Insulin Glargine,Hum.rec.anlog [Lantus Solostar Pen] 15 units SQ DAILY PRN 10/28/23 [History] Insulin Lispro [humaLOG Kwikpen] See Protocol SQ TID-W/MEALS PRN 10/28/23 [History] Testosterone Cypionate [Depo-Testosterone] 80 mg SQ MO 10/28/23 [History] Ziprasidone [Geodon] 20 mg PO BID 10/28/23 [History] Acetaminophen Tab [Tylenol] 650 mg PO Q6H #30 tab 11/12/23 [Rx] Docusate [Colace] 100 mg PO BID #20 capsule 11/12/23 [Rx] Ibuprofen [Motrin] 600 mg PO Q6HR PRN #40 tab 11/12/23 [Rx] oxyCODONE HCL [OxyIR] 5 mg PO Q6H PRN 3 Days #10 tab 11/12/23 [Rx] Nicotine 14Mg/24Hr Patch [Habitrol] 1 patch TRANSDERM DAILY #30 patch 11/13/23 [Rx] Follow up Appointment(s)/Referral(s): Kodi Weiner MD [STAFF PHYSICIAN] - 11/20/23 2:10 pm Haley Cannon NPC [REFERRING] - 3 Days Activity/Diet/Wound Care/Special Instructions: No driving while taking OxyIR No lifting over 10 pounds Shower daily. No soaking or tub baths for 2 weeks Very light activity until you are reevaluated at your follow up appointment with your surgeon Discharge Disposition: HOME SELF-CARE
--- NOTE | 2023-11-15 14:48 | PN ---
PROGRESS NOTE DATE OF SERVICE: 11/13/2023 SUBJECTIVE: This is a 28-year-old woman, who was admitted after laparoscopic cholecystectomy, had insulin pump at home. No chest pain. No palpitation. OBJECTIVE: VITAL SIGNS: Pulse is 78, blood pressure 108/62, respirations 17. CHEST: Clear to auscultation. CARDIOVASCULAR: S1, S2. ABDOMEN: Soft. LEGS: Status post surgery. LABORATORY DATA: Reviewed. ASSESSMENT: 1. Status post laparoscopic cholecystectomy. 2. Diabetes mellitus type 2 with hyperglycemia, on insulin pump. 3. Gastroesophageal reflux disease. 4. Postural orthostatic tachycardia syndrome. 5. History of Methicillin-resistant Staphylococcus aureus. 6. Multiple medical issues. RECOMMENDATIONS AND DISCUSSION: This is a 28-year-old woman presented with multiple complex medical issues. I would recommend to initiate insulin pump before being discharged and ensure adequate diabetes mellitus control and closely follow with primary physician after maintaining a glucose log. I would recommend Lantus 10 units at this time and continue to monitor and continue the scale. MMODL / IJN: [id number] /
== END 2023-11-13 15:05 | disposition home or self-care (01) ==
LOC: OR 07:03 → EDSEX 08:40 → 4SSUR 09:52 → OR 11-13 15:05
PROVIDERS: ATTEND Surgery
DX: K80.00 Calculus of gallbladder with acute cholecystitis without obstruction
CPT/HCPCS: 80048; 80053; 81001; 81025; 83735; 84100; 85025; 88304

== ENCOUNTER → 2023-12-27 | Outpatient (CLI) | payer OTHER ==
--- NOTE | 2023-12-27 11:39 | MR ---
EXAMINATION TYPE: MR knee LT wo con DATE OF EXAM: 12/27/2023 COMPARISON: None HISTORY: Left knee pain for 8+ years TECHNIQUE: Multiplanar, multisequence imaging of the left knee is performed without IV contrast. FINDINGS: There is no bone contusion or fracture. There is no joint effusion. There is no meniscal tear. There is no ligamentous injury. Patellar and quadriceps tendons are normal. The anterior fat pads are normal without edema. There is a 6 17 mm x 7 mm multiloculated ganglion cyst of the popliteus tendon. IMPRESSION: 1. No meniscal or ligamentous injury. 2. No bone contusion or fracture. 3. No cartilage defects. 4. Multiloculated ganglion cyst of the popliteus tendon as described above. [facility], , 12/27/2023 11:36 AM
--- NOTE | 2023-12-27 22:39 | MR ---
EXAMINATION TYPE: MR shoulder LT wo con DATE OF EXAM: 12/27/2023 COMPARISON: Bilateral shoulder arthritis and August 31, 2023 HISTORY: Left shoulder pain for 5-7 years TECHNIQUE: Multiplanar, multisequence imaging of the left shoulder is performed without contrast. FINDINGS: Rotator Cuff: Intact supraspinatus and infraspinatus tendons. Heterogeneous subscapularis tendon with increased signal. Rotator cuff muscle bulk is preserved. Acromioclavicular Joint: No significant spurring or narrowing. Glenohumeral Joint: Joint effusion. No significant spurring. Labrum: The labrum appears grossly intact given limitation of non-arthrogram study. Biceps Tendon: The long head of biceps is in normal location within bicipital groove. Bone marrow signal: Heterogeneity consistent with red marrow conversion. No suspicious osseous edema. Other: No additional significant abnormality is appreciated. IMPRESSION: 1. Tendinosis of the subscapularis tendon. No labral tear. [facility], Workstation: [address], 12/27/2023 10:37 PM
== END | disposition home or self-care (01) ==
LOC: RADCTMAIN 07:22
PROVIDERS: ATTEND Internal Medicine
DX: M25.512 Pain in left shoulder (principal); M25.562 Pain in left knee; M54.2 Cervicalgia; M67.462 Ganglion, left knee; M67.814 Other specified disorders of tendon, left shoulder
CPT/HCPCS: 70490

== ENCOUNTER 2024-01-18 23:24 | Inpatient (IN) | payer OTHER ==
--- NOTE | 2024-01-19 01:16 | ED ---
General Adult HPI - General Chief complaint: Recheck/Abnormal Lab/Rx Stated complaint: Vomitting,Migraine Time Seen by Provider: 01/18/24 23:38 Source: patient, RN notes reviewed Mode of arrival: ambulatory Limitations: no limitations - History of Present Illness Initial comments: This is a 28-year-old female presenting to the emergency department chief complaint for a abscess to her right buttock that has been worsening over the past 5 days. She states that over the past 2 days she has been experiencing intermittent fevers, chills, nausea and vomiting. States that she has a history of becoming septic due to similar abscesses and had to have been hospitalized for IV antibiotics. She denies previous surgical abdominal history, diarrhea, constipation, urinary complaints, cough, rhinorrhea or congestion. She denies recent antibiotic use. - Related Data Home Medications Medication Instructions Recorded Confirmed Cetirizine HCl [Zyrtec] 10 mg PO DAILY PRN 10/28/23 11/12/23 INSULIN LISPRO (For Pump) [humaLOG 0.01 units SQ-PUMP CONTINUOUS 10/28/23 11/12/23 (For Pump)] Insulin Glargine,Hum.rec.anlog 15 units SQ DAILY PRN 10/28/23 11/12/23 [Lantus Solostar Pen] Insulin Lispro [humaLOG Kwikpen] See Protocol SQ TID-W/MEALS PRN 10/28/23 11/12/23 Testosterone Cypionate 80 mg SQ MO 10/28/23 11/12/23 [Depo-Testosterone] Ziprasidone [Geodon] 20 mg PO BID 10/28/23 11/12/23 Previous Rx's Medication Instructions Recorded Acetaminophen Tab [Tylenol] 650 mg PO Q6H #30 tab 11/12/23 Docusate [Colace] 100 mg PO BID #20 capsule 11/12/23 Ibuprofen [Motrin] 600 mg PO Q6HR PRN #40 tab 11/12/23 oxyCODONE HCL [OxyIR] 5 mg PO Q6H PRN 3 Days #10 tab 11/12/23 Nicotine 14Mg/24Hr Patch [Habitrol] 1 patch TRANSDERM DAILY #30 patch 11/13/23 Allergies Allergy/AdvReac Type Severity Reaction Status Date / Time amoxicillin Allergy Anaphylaxis Verified 01/18/24 23:30 diphenhydramine Allergy Anaphylaxis Verified 01/18/24 23:30 [From Benadryl] piperacillin [From Zosyn] Allergy Anaphylaxis Verified 01/18/24 23:30 tazobactam [From Zosyn] Allergy Anaphylaxis Verified 01/18/24 23:30 vancomycin Allergy Anaphylaxis Verified 01/18/24 23:30 Review of Systems ROS Statement: Those systems with pertinent positive or pertinent negative responses have been documented in the HPI. ROS Other: All systems not noted in ROS Statement are negative. Past Medical History Past Medical History: Diabetes Mellitus, GERD/Reflux Additional Past Medical History / Comment(s): POTS, reflux during , hyperextendible joints History of Any Multi-Drug Resistant Organisms: MRSA Date of last positivie culture/infection: 04/08/23 MDRO Source:: Left leg Past Surgical History: No Surgical Hx Reported Additional Past Surgical History / Comment(s): abscess removal Lt. leg/inner thigh, D & C Past Anesthesia/Blood Transfusion Reactions: No Reported Reaction Past Psychological History: ADD/ADHD, Anxiety, Depression, PTSD, Schizoaffective Disorder Smoking Status: Current every day smoker, Vaper Past Alcohol Use History: None Reported Past Drug Use History: None Reported - Past Family History Mother Family Medical History: Diabetes Mellitus Father Family Medical History: Diabetes Mellitus Brother(s) Family Medical History: Asthma General Exam Limitations: no limitations General appearance: alert, in no apparent distress Eye exam: Present: normal appearance, PERRL, EOMI. Absent: scleral icterus, conjunctival injection, periorbital swelling ENT exam: Present: normal exam, mucous membranes moist Neck exam: Present: normal inspection. Absent: tenderness, meningismus, lymph adenopathy Respiratory exam: Present: normal lung sounds bilaterally. Absent: respiratory distress, wheezes, rales, rhonchi, stridor Cardiovascular Exam: Present: regular rate, normal rhythm, normal heart sounds. Absent: systolic murmur, diastolic murmur, rubs, gallop, clicks GI/Abdominal exam: Present: soft, normal bowel sounds. Absent: distended, tenderness, guarding, rebound, rigid Extremities exam: Present: normal inspection, full ROM, normal capillary refill. Absent: tenderness, pedal edema, joint swelling, calf tenderness Back exam: Present: normal inspection Expanded Type of lesion: Present: abscess (left buttock fluctuant abscess with purulent head, no active drainage, surrounding erythema.) Course Vital Signs 01/18/24 01/19/24 23:26 02:36 Temperature 100.2 F H 99.3 F Pulse Rate 114 H Respiratory 20 Rate Blood Pressure 132/89 O2 Sat by Pulse 98 Oximetry Medical Decision Making - Medical Decision Making Was pt. sent in by a medical professional or institution (LAUREN Winter, CORRECTIONAL GUARD, urgent care, hospital, or assisted...) When possible be specific @ -No Did you speak to anyone other than the patient for history (EMS, parent, family, police, friend...)? What history was obtained from this source @ -No Did you review nursing and triage notes (agree or disagree)? Why? @ -I reviewed and agree with nursing and triage notes Were old charts reviewed (outside hosp., previous admission, EMS record, old EKG, old radiological studies, urgent care reports/EKG's, assisted records)? Report findings @ -No old charts were reviewed Differential Diagnosis (chest pain, altered mental status, abdominal pain women, abdominal pain men, vaginal bleeding, weakness, fever, dyspnea, syncope, headache, dizziness, GI bleed, back pain, seizure, CVA, palpatations, mental health, musculoskeletal)? @ -Cellulitis, abscess, folliculitis, this list is not all inclusive EKG interpreted by me (3pts min.). @ -None X-rays interpreted by me (1pt min.). @ -None done CT interpreted by me (1pt min.). @ -None done U/S interpreted by me (1pt. min.). @ -None done What testing was considered but not performed or refused? (CT, X-rays, U/S, labs)? Why? @ -None What meds were considered but not given or refused? Why? @ -None Did you discuss the management of the patient with other professionals (professionals i.e. LAUREN Winter, CORRECTIONAL GUARD, lab, RT, psych nurse, community mental health social worker, security guards dispatcher, teacher, donor relations officer, case packer and sealer)? Give summary @ -Spoke with sound internal medicine physician, Dr. Presley, regard to the patient's workup concerning for sepsis. Patient will be started on IV antibiotics after blood cultures are obtained. Was smoking cessation discussed for >3mins.? @ -No Was critical care preformed (if so, how long)? @ -No Were there social determinants of health that impacted care today? How? (Homelessness, low income, unemployed, alcoholism, drug addiction, transportation, low edu. Level, literacy, decrease access to med. care, [place] [facility], rehab)? @ -No Was there de-escalation of care discussed even if they declined (Discuss DNR or withdrawal of care, Hospice)? DNR status @ -No What co-morbidities impacted this encounter? (DM, HTN, Smoking, COPD, CAD, Cancer, CVA, ARF, Chemo, Hep., AIDS, mental health diagnosis, sleep apnea, morbid obesity)? @ -None Was patient admitted / discharged? Hospital course, mention meds given and route, prescriptions, significant lab abnormalities, going to OR and other pertinent info. @ -admitted. 28-year-old female with abscess and fever. On evaluation patient noted to be febrile and mildly tachycardic. Physical examination remarkable for abscess to the left buttock with surrounding erythema and fluctuance. Patient is provided with dose of Tylenol for fever. Labs remarkable for mild leukocytosis of 11.6, elevated neutrophils 8.2, CRP 5.6, and lactic acid of 2.5. Patient does meet sepsis criteria with fever, tachycardia, known source of infection, and elevation in lactic acid. she is started on 1 L fluid bolus, blood cultures are obtained and started on IV antibiotics. discussed with Dr. Carlson Undiagnosed new problem with uncertain prognosis? @ -No Drug Therapy requiring intensive monitoring for toxicity (Heparin, Nitro, Insulin, Cardizem)? @ -No Were any procedures done? @ -No Diagnosis/symptom? @ -sepsis with known left buttock abscess Acute, or Chronic, or Acute on Chronic? @ -acute Uncomplicated (without systemic symptoms) or Complicated (systemic symptoms)? @ -complicated Side effects of treatment? @ -No Exacerbation, Progression, or Severe Exacerbation? @ -No Poses a threat to life or bodily function? How? (Chest pain, [place], [place], pneumonia, PE, COPD, DKA, ARF, appy, cholecystitis, CVA, Diverticulitis, Homicidal, Suicidal, threat to staff... and all critical care pts) @ -No - Lab Data Result diagrams: 01/19/24 02:51 01/19/24 02:51 Lab Results 01/19/24 01/19/24 01/19/24 Range/Units 02:51 02:51 02:51 WBC 11.6 H (3.8-10.6) k/uL RBC 5.06 (3.80-5.40) m/uL Hgb 13.6 (11.4-16.0) gm/dL Hct 39.4 (34.0-46.0) % MCV 77.8 L (80.0-100.0) fL MCH 26.9 (25.0-35.0) pg MCHC 34.6 (31.0-37.0) g/dL RDW 14.4 (11.5-15.5) % Plt Count 247 (150-450) k/uL MPV 9.6 Neutrophils % 71 % Lymphocytes % 21 % Monocytes % 3 % Eosinophils % 2 % Basophils % 1 % Neutrophils # 8.2 H (1.3-7.7) k/uL Lymphocytes # 2.4 (1.0-4.8) k/uL Monocytes # 0.4 (0-1.0) k/uL Eosinophils # 0.3 (0-0.7) k/uL Basophils # 0.1 (0-0.2) k/uL Sodium 134 L (137-145) mmol/L Potassium 3.9 (3.5-5.1) mmol/L Chloride 103 (98-107) mmol/L Carbon Dioxide 25 (22-30) mmol/L Anion Gap 6 mmol/L BUN 5 L (7-17) mg/dL Creatinine 0.43 L (0.52-1.04) mg/dL Est GFR (CKD-EPI)AfAm >90 (>60 ml/min/1.73 sqM) Est GFR (CKD-EPI)NonAf >90 (>60 ml/min/1.73 sqM) Glucose 176 H (74-99) mg/dL Plasma Lactic Acid [place] 2.5 H* (0.7-2.0) mmol/L Calcium 9.0 (8.4-10.2) mg/dL Total Bilirubin 0.7 (0.2-1.3) mg/dL AST 23 (14-36) U/L ALT 16 (4-34) U/L Alkaline Phosphatase 122 (38-126) U/L C-Reactive Protein 5.6 H (<1.0) mg/dL Total Protein 7.4 (6.3-8.2) g/dL Albumin 4.2 (3.5-5.0) g/dL Disposition Clinical Impression: Sepsis, Abscess of buttock, left Disposition: ADMITTED IP TO THIS [facility] Condition: Stable Referrals: Nathanael Badillo DO [Primary Care Provider] - 1-2 days Decision to Admit Reason: Admit from EC Decision Date: 01/19/24 Decision Time: 04:55
[2024-01-19] MEDS: ACETAMINOPHEN TAB 500 MG TAB PO STA (01:27)
[2024-01-19] MEDS: LIDOCAINE 1% INJ 10MG/ML (20 ML MDV) SQ ONE (01:45)
[2024-01-19 03:07] LABS: Basophils # (A) 0.1 k/uL (0-0.2); Basophils % (A) 1 %; Eosinophils # (A) 0.3 k/uL (0-0.7); Eosinophils % (A) 2 %; HCT 39.4 % (34.0-46.0); HGB 13.6 gm/dL (11.4-16.0); Lymphocytes # (A) 2.4 k/uL (1.0-4.8); Lymphocytes % (A) 21 %; MCH 26.9 pg (25.0-35.0); MCHC 34.6 g/dL (31.0-37.0); MCV 77.8 fL (80.0-100.0); Mean Platelet Volume 9.6; Monocytes # (A) 0.4 k/uL (0-1.0); Monocytes % (A) 3 %; Neutrophils # (A) 8.2 k/uL (1.3-7.7); Neutrophils % (A) 71 %; Platelet Count 247 k/uL (150-450); RBC 5.06 m/uL (3.80-5.40); RDW 14.4 % (11.5-15.5); WBC 11.6 k/uL (3.8-10.6)
[2024-01-19 03:28] LABS: ALT 16 U/L (4-34); African American GFR (CKD) >90 (>60 ml/min/1.73 sqM); Albumin 4.2 g/dL (3.5-5.0); Anion Gap 6 mmol/L; Blood Urea Nitrogen 5 mg/dL (7-17); C Reactive Protein 5.6 mg/dL (<1.0); Carbon Dioxide 25 mmol/L (22-30); Chloride 103 mmol/L (98-107); Glucose 176 mg/dL (74-99); Non-African American GFR(CKD) >90 (>60 ml/min/1.73 sqM); Sodium 134 mmol/L (137-145); Total Bilirubin 0.7 mg/dL (0.2-1.3); Total Protein 7.4 g/dL (6.3-8.2)
[2024-01-19 04:18] LABS: AST 23 U/L (14-36); Potassium 3.9 mmol/L (3.5-5.1)
[2024-01-19 04:19] LABS: Alkaline Phosphatase 122 U/L (38-126)
[2024-01-19] MEDS: SODIUM CHLORIDE 0.9% 1,000 ML IV STA (04:43)
[2024-01-19] MEDS ORDERED: NALOXONE 0.4 MG/ML 1 ML VIAL IV PRN (05:01)
[2024-01-19] MEDS ORDERED: IBUPROFEN 400 MG TAB PO PRN (05:01)
[2024-01-19] MEDS: CLINDAMYCIN 600 MG/50 ML-D5W 600 MG in DEXTROSE/WATER 1 50ML.BAG IVPB SCH (05:36)
[2024-01-19] MEDS: KETOROLAC 15 MG/ML 1 ML VIAL IVP PRN (05:39)
[2024-01-19] MEDS: SODIUM CHLORIDE 0.9% 1,000 ML IV SCH (05:40)
[2024-01-19] MEDS: metroNIDAZOLE-NS PMX 500 MG in SALINE 1 100ML.BAG IVPB SCH (05:42)
--- NOTE | 2024-01-19 05:58 | P.HPIM ---
History of Present Illness H&P Date: 01/19/24 History of present illness; 28-year-old female with history of recurrent skin infections, with a history of MRSA in the past, and diabetes mellitus. Presents to the emergency department for evaluation of an abscess on her right buttock that has been worsening over the past 5 days. According to the patient, for the past 2 days she has been experiencing intermittent fevers, chills, without nausea and vomiting. She rates the pain as a 7/10 and describes it as being sharp and stabbing. She does have a history of becoming septic due to similar abscesses and had to have been hospitalized for IV antibiotics. She notes having had previous incision and drainage completed of an abscess located on the right buttock. She denies previous abdominal surgeries, diarrhea, constipation, urinary complaints, cough, rhinorrhea or congestion. She also denies recent antibiotic use. Vitals: -Blood pressure 132/89, heart rate 114, respiratory rate 20, SpO2 98% on room air Patient admitted to internal medicine service REVIEW OF SYSTEMS: CONSTITUTIONAL: Notes feeling feverish for ~2 days. HEENT: No recent visual problems or hearing problems. Denied any sore throat. CARDIOVASCULAR: No chest pain, orthopnea, PND, no palpitations, no syncope. PULMONARY: No shortness of breath, no cough, no hemoptysis. GASTROINTESTINAL: No diarrhea, no nausea, no vomiting, no abdominal pain. NEUROLOGICAL: Endorses some intermittent numbness and tingling in her legs, worse on the right, but bilateral. HEMATOLOGICAL: Denies any bleeding or petechiae. GENITOURINARY: Denies any burning micturition, frequency, or urgency. MUSCULOSKELETAL/RHEUMATOLOGICAL: Denies any joint pain, swelling, or any muscle pain. ENDOCRINE: Denies any polyuria or polydipsia. The rest of the 14-point review of systems is negative. PHYSICAL EXAMINATION: GENERAL: The patient is alert and oriented x3, not in any acute distress. Well developed, well nourished. HEENT: Pupils are round and equally reacting to light. EOMI. No scleral icterus. No conjunctival pallor. Normocephalic, atraumatic. No pharyngeal erythema. No thyromegaly. CARDIOVASCULAR: S1 and S2 present. No murmurs, rubs, or gallops. PULMONARY: Chest is clear to auscultation, no wheezing or crackles. ABDOMEN: Soft, nontender, nondistended, normoactive bowel sounds. No palpable organomegaly. MUSCULOSKELETAL: No joint swelling or deformity. EXTREMITIES: No cyanosis, clubbing, or pedal edema. NEUROLOGICAL: Gross neurological examination did not reveal any focal deficits. SKIN: Abscess noted on the left buttock along the intergluteal cleft approximately 1-1.5 cm in diameter visible, with surrounding area of erythema and noted warmth. Addition scar noted on the mid left buttock from previous I&D. Assessment and plan 38-year-old female with history of recurrent skin infections, with history of MRSA in the past. Presents to the emergency department for further evaluation of an abscess on her right buttock that been worse over the past 5 days. Patient has been admitted to the internal medicine service for further evaluation of this abscess. #Worsening abscess of the left buttock #History of MRSA infection secondary to abscess of the left leg #Lactic acidosis #Leukocytosis -Blood culture currently pending -Continue to monitor CBC/CMP/lactic acid received clindamycin one time dose in the ED, then we switched to levofloxacin, however after reviewing the prior microbiology , the antibiotics were updated to flagyl and bactrim due to history of MRSA -Patient started on Flagyl 500 mg IVPB every 8 hours and Bactrim DS bid -Continue with antibiotics -History of previously documented MRSA infection -Consider culture of skin abscess drainage -GS consulted #Diabetes mellitus -The patient maintained on approximately 5 units of insulin daily -States she is inconsistent with her insulin usage and checking her blood sugars -Glucose on arrival 176 -Accu-Cheks -Initiate medium dose sliding scale -Hemoglobin A1c pending GI prohylaxis: protonix 40 mg po daily DVT prophylaxis:lovenox 40 mg sc daily Dictation was produced using [employer] dictation software. please excuse any grammatical, word or spelling errors. I have seen and evaluated the patient today. I Discussed the case with the resident and agree with the resident's findings I edited the assessment and plan as necessary as documented in the resident's note. Past Medical History Past Medical History: Diabetes Mellitus, GERD/Reflux Additional Past Medical History / Comment(s): POTS, reflux during , hyperextendible joints History of Any Multi-Drug Resistant Organisms: MRSA Date of last positivie culture/infection: 04/08/23 MDRO Source:: Left leg Past Surgical History: No Surgical Hx Reported Additional Past Surgical History / Comment(s): abscess removal Lt. leg/inner thigh, D & C Past Anesthesia/Blood Transfusion Reactions: No Reported Reaction Past Psychological History: ADD/ADHD, Anxiety, Depression, PTSD, Schizoaffective Disorder Smoking Status: Current every day smoker, Vaper Past Alcohol Use History: None Reported Past Drug Use History: None Reported - Past Family History Mother Family Medical History: Diabetes Mellitus Father Family Medical History: Diabetes Mellitus Brother(s) Family Medical History: Asthma Medications and Allergies Home Medications Medication Instructions Recorded Confirmed Type Cetirizine HCl [Zyrtec] 10 mg PO DAILY PRN 10/28/23 11/12/23 History INSULIN LISPRO (For Pump) [humaLOG 0.01 units SQ-PUMP CONTINUOUS 10/28/2311/11 History (For Pump)] Insulin Glargine,Hum.rec.anlog 15 units SQ DAILY PRN 10/28/23 11/12/23 History [Lantus Solostar Pen] Insulin Lispro [humaLOG Kwikpen] See Protocol SQ TID-W/MEALS PRN 10/28/23 11/12/23 History Testosterone Cypionate 80 mg SQ MO 10/28/23 11/12/23 History [Depo-Testosterone] Ziprasidone [Geodon] 20 mg PO BID 10/28/23 11/12/23 History Acetaminophen Tab [Tylenol] 650 mg PO Q6H #30 tab 11/12/23 Rx Docusate [Colace] 100 mg PO BID #20 capsule 11/12/23 Rx Ibuprofen [Motrin] 600 mg PO Q6HR PRN #40 tab 11/12/23 Rx oxyCODONE HCL [OxyIR] 5 mg PO Q6H PRN 3 Days #10 tab 11/12/23 Rx Nicotine 14Mg/24Hr Patch [Habitrol] 1 patch TRANSDERM DAILY #30 patch 11/13/23 Rx Allergies Allergy/AdvReac Type Severity Reaction Status Date / Time amoxicillin Allergy Anaphylaxis Verified 01/18/24 23:30 diphenhydramine Allergy Anaphylaxis Verified 01/18/24 23:30 [From Benadryl] piperacillin [From Zosyn] Allergy Anaphylaxis Verified 01/18/24 23:30 tazobactam [From Zosyn] Allergy Anaphylaxis Verified 01/18/24 23:30 vancomycin Allergy Anaphylaxis Verified 01/18/24 23:30 Physical Exam Vitals: Vital Signs Temp Pulse Resp BP Pulse Ox 01/19/24 05:33 98.1 F 89 20 111/76 95 01/19/24 02:36 99.3 F 01/18/24 23:26 100.2 F H 114 H 20 132/89 98 Intake and Output 01/18/24 01/18/24 01/19/24 14:59 22:59 06:59 Other: Weight 100.244 kg Results CBC & Chem 7: 01/19/24 02:51 01/19/24 02:51 Labs: Abnormal Lab Results - Last 24 Hours (Table) 01/19/24 01/19/24 01/19/24 Range/Units 02:51 02:51 02:51 WBC 11.6 H (3.8-10.6) k/uL MCV 77.8 L (80.0-100.0) fL Neutrophils # 8.2 H (1.3-7.7) k/uL Sodium 134 L (137-145) mmol/L BUN 5 L (7-17) mg/dL Creatinine 0.43 L (0.52-1.04) mg/dL Glucose 176 H (74-99) mg/dL Plasma Lactic Acid [place] 2.5 H* (0.7-2.0) mmol/L C-Reactive Protein 5.6 H (<1.0) mg/dL
[2024-01-19 06:23] LABS: Glucose,Whole Blood 171 mg/dL (70-110)
[2024-01-19] MEDS: SULFAMETHOX-TMP 800-160MG 1 EACH TAB PO SCH (06:38)
[2024-01-19] MEDS: PANTOPRAZOLE 40 MG TABLET PO SCH (06:38)
[2024-01-19] MEDS: LEVOFLOXACIN 750MG-D5W PMX 750 MG in DEXTROSE/WATER 1 150ML.BAG IVPB SCH (06:41)
[2024-01-19 09:13] LABS: Glucose,Whole Blood 185 mg/dL (70-110)
[2024-01-19] MEDS: INSULIN ASPART (NovoLOG) 100 UNIT/ML VIAL SQ SCH ×2 (09:40→12:37)
[2024-01-19] MEDS: ENOXAPARIN 40 MG/0.4 ML SYRINGE SQ SCH (09:40)
[2024-01-19] MEDS ORDERED: DEXTROSE 50% SYRINGE 50 ML IVP PRN ×2 (09:46)
[2024-01-19 11:52] LABS: Glucose,Whole Blood 339 mg/dL (70-110)
[2024-01-19] MEDS: INSULIN DETEMIR (LEVEMIR) 100 UNIT/ML SYR SQ SCH (12:37)
--- NOTE | 2024-01-19 14:45 | P.GSCN ---
History of Present Illness Consult date: 01/19/24 History of present illness: CHIEF COMPLAINT: Left buttock abscess HISTORY OF PRESENT ILLNESS: The patient is a 28-year-old female with with autism who presents with 5-day history of swelling redness along the left buttock. She reports last event was in 2017, 7 years ago. Additionally, patient has poorly controlled diabetes with blood sugars are constantly in the 300s. Patient does report she eats Ramen noodles including Pasta due to her autism. Prior to my assessment, patient had lower bleeding. Patient does have a surgical history of cholecystectomy 2 months ago. Patient's hemoglobin A1c came back over 13. PAST MEDICAL HISTORY: See list and reviewed PAST SURGICAL HISTORY: See list and reviewed MEDICATIONS: See list and reviewed ALLERGIES: See list and reviewed SOCIAL HISTORY: See list and reviewed FAMILY HISTORY: See list and reviewed REVIEW OF ORGAN SYSTEMS: CONSTITUTIONAL: Fevers over 101 admission to the ER. Obesity due to excess ca lories, BMI 32.6 EYES: Denies any trouble with vision. No glasses. HEENT: No difficulties with hearing. No nosebleeds. No difficulty swallowing. RESPIRATORY: Denies pneumonia. Denies any troubles with breathing or dyspnea on exertion. CARDIOVASCULAR: Denies any chest pain, palpitations, or recent heart attacks. GASTROINTESTINAL: Prior cholecystectomy October 2023 GENITOURINARY: Denies any blood in urine or increased urinary frequency. NEUROLOGICAL: Denies any numbness or tingling along the distal extremities. No seizure disorders or headaches. MUSCULOSKELETAL: Denies any back pain, stiffness or joint arthritis. SKIN: No current skin cancer. No rash. PSYCHIATRIC: Denies current depression or suicidal thoughts. ENDOCRINE: Insulin-dependent diabetes type 2, poorly controlled with hyperglycemia HEME/LYMPHATIC: Denies any lumps and bumps around the neck. No recent deep venou s thrombosis. ALLERGY/IMMUNOLOGY: No immunoglobulin therapy. No immune deficiencies. BREAST: Denies current breast lumps, pain or nipple discharge. PHYSICAL EXAM: VITALS: Reviewed CONSTITUTIONAL: Well developed and in no acute distress. EYES: Conjuctivae without sclera icterus. Extraocular movements grossly intact. HEAD, EARS, NOSE, THROAT: Moist buccal mucosa. Head is atraumatic, normoceph alic. Hears conversational speech. No nasal drainage. Poor dentition. NECK: Supple. No JV distention. No thyroidomegaly. RESPIRATORY: Non-labored respirations and equal bilateral excursions. No gross wheezes. CARDIOVASCULAR: Palpable 2+ radial pulses. ABDOMEN: Unremarkable LYMPH: No neck lymphadenopathy. MUSCULOSKELETAL: No clubbing cyanosis or edema SKIN: 3 cm induration along the left inferior lateral buttock with eschar. No diffuse cellulitis. NEUROLOGIC: Cranial nerves II through XII grossly intact. No focal or lateralizing signs. PSYCH: Appropriate affect. Alert and oriented to person, place and time. Displays appropriate insight. CLINCAL LABS: Reviewed. WBC over 11,000. Blood sugar close 171-339, hyperglycemia RECORDS: previous old records reviewed for cholecystectomy October 2023. Blood sugar glucose over 300s. ASSESSMENT: 1. Left buttock abscess with sepsis 2. Currently controlled diabetes type 2, insulin-dependent with hyperglycemia 3. Dietary noncompliance for diabetes 4. Autism 5. Obesity due to excess calories, BMI 32.6 PLAN: 1. On clinical exam, very mild superficial induration which appears to already drained. No surgical intervention needed at this time. 2. Patient has uncontrolled diabetes pre-existing. Do recommend aggressive control for hyperglycemia which can contribute to sepsis 3. Recommend sitz bath including IV antibiotics. Thank you for this kind consultation. Past Medical History Past Medical History: Diabetes Mellitus, GERD/Reflux Additional Past Medical History / Comment(s): POTS, reflux during , hyperextendible joints History of Any Multi-Drug Resistant Organisms: MRSA Year Discovered:: 04/08/23 MDRO Source:: Left leg Past Surgical History: No Surgical Hx Reported Additional Past Surgical History / Comment(s): abscess removal Lt. leg/inner thigh, D & C Past Anesthesia/Blood Transfusion Reactions: No Reported Reaction Past Psychological History: ADD/ADHD, Anxiety, Depression, PTSD, Schizoaffective Disorder Smoking Status: Current every day smoker, Vaper Past Alcohol Use History: None Reported Past Drug Use History: None Reported - Past Family History Mother Family Medical History: Diabetes Mellitus Father Family Medical History: Diabetes Mellitus Brother(s) Family Medical History: Asthma Medications and Allergies Home Medications Medication Instructions Recorded Confirmed Type Insulin Glargine,Hum.rec.anlog 15 units SQ BID 10/28/23 01/19/24 History [Lantus Solostar Pen] Insulin Lispro [humaLOG Kwikpen] See Protocol SQ TID-W/MEALS 10/28/23 01/19/24 History Allergies Allergy/AdvReac Type Severity Reaction Status Date / Time amoxicillin Allergy Anaphylaxis Verified 01/19/24 10:11 diphenhydramine Allergy Anaphylaxis Verified 01/19/24 10:11 [From Benadryl] piperacillin [From Zosyn] Allergy Anaphylaxis Verified 01/19/24 10:11 tazobactam [From Zosyn] Allergy Anaphylaxis Verified 01/19/24 10:11 vancomycin Allergy Anaphylaxis Verified 01/19/24 10:11 Surgical - Exam Vital Signs Temp Pulse Resp BP Pulse Ox 100.2 F H 114 H 20 132/89 98 01/18/24 23:26 01/18/24 23:26 01/18/24 23:26 01/18/24 23:26 01/18/24 23:26 Results - Labs 01/19/24 02:51 01/19/24 02:51 Abnormal Lab Results - Last 24 Hours (Table) 01/19/24 01/19/24 01/19/24 Range/Units 02:51 02:51 02:51 WBC 11.6 H (3.8-10.6) k/uL MCV 77.8 L (80.0-100.0) fL Neutrophils # 8.2 H (1.3-7.7) k/uL Sodium 134 L (137-145) mmol/L BUN 5 L (7-17) mg/dL Creatinine 0.43 L (0.52-1.04) mg/dL Glucose 176 H (74-99) mg/dL POC Glucose (mg/dL) (70-110) mg/dL Hemoglobin A1c (<=6.0) % Plasma Lactic Acid [place] 2.5 H* (0.7-2.0) mmol/L C-Reactive Protein 5.6 H (<1.0) mg/dL 01/19/24 01/19/24 01/19/24 Range/Units 06:12 06:21 09:12 WBC (3.8-10.6) k/uL MCV (80.0-100.0) fL Neutrophils # (1.3-7.7) k/uL Sodium (137-145) mmol/L BUN (7-17) mg/dL Creatinine (0.52-1.04) mg/dL Glucose (74-99) mg/dL POC Glucose (mg/dL) 171 H 185 H (70-110) mg/dL Hemoglobin A1c 13.0 H (<=6.0) % Plasma Lactic Acid [place] (0.7-2.0) mmol/L C-Reactive Protein (<1.0) mg/dL 01/19/24 Range/Units 11:51 WBC (3.8-10.6) k/uL MCV (80.0-100.0) fL Neutrophils # (1.3-7.7) k/uL Sodium (137-145) mmol/L BUN (7-17) mg/dL Creatinine (0.52-1.04) mg/dL Glucose (74-99) mg/dL POC Glucose (mg/dL) 339 H (70-110) mg/dL Hemoglobin A1c (<=6.0) % Plasma Lactic Acid [place] (0.7-2.0) mmol/L C-Reactive Protein (<1.0) mg/dL Diabetes panel 01/19/24 01/19/24 Range/Units 02:51 06:12 Sodium 134 L (137-145) mmol/L Potassium 3.9 (3.5-5.1) mmol/L Chloride 103 (98-107) mmol/L Carbon Dioxide 25 (22-30) mmol/L BUN 5 L (7-17) mg/dL Creatinine 0.43 L (0.52-1.04) mg/dL Glucose 176 H (74-99) mg/dL Hemoglobin A1c 13.0 H (<=6.0) % Calcium 9.0 (8.4-10.2) mg/dL AST 23 (14-36) U/L ALT 16 (4-34) U/L Alkaline Phosphatase 122 (38-126) U/L Total Protein 7.4 (6.3-8.2) g/dL Albumin 4.2 (3.5-5.0) g/dL Calcium panel 01/19/24 Range/Units 02:51 Calcium 9.0 (8.4-10.2) mg/dL Albumin 4.2 (3.5-5.0) g/dL Pituitary panel 01/19/24 Range/Units 02:51 Sodium 134 L (137-145) mmol/L Potassium 3.9 (3.5-5.1) mmol/L Chloride 103 (98-107) mmol/L Carbon Dioxide 25 (22-30) mmol/L BUN 5 L (7-17) mg/dL Creatinine 0.43 L (0.52-1.04) mg/dL Glucose 176 H (74-99) mg/dL Calcium 9.0 (8.4-10.2) mg/dL Adrenal panel 01/19/24 Range/Units 02:51 Sodium 134 L (137-145) mmol/L Potassium 3.9 (3.5-5.1) mmol/L Chloride 103 (98-107) mmol/L Carbon Dioxide 25 (22-30) mmol/L BUN 5 L (7-17) mg/dL Creatinine 0.43 L (0.52-1.04) mg/dL Glucose 176 H (74-99) mg/dL Calcium 9.0 (8.4-10.2) mg/dL Total Bilirubin 0.7 (0.2-1.3) mg/dL AST 23 (14-36) U/L ALT 16 (4-34) U/L Alkaline Phosphatase 122 (38-126) U/L Total Protein 7.4 (6.3-8.2) g/dL Albumin 4.2 (3.5-5.0) g/dL
--- NOTE | 2024-01-19 14:48 | P.PN ---
Progress Note - Text Progress Note Date: 01/19/24 (delayed charting seen at 1030) 28-year-old male presenting with buttock abscess. Has had this in the past. Started noticing symptoms 3 to 4 days ago. No history of immune modulating disease. Is on testosterone at home as well as lispro and glargine. Continue with Bactrim and Flagyl. Await surgical consultation. Patient without sepsis as no evidence of persistent tachycardia, fever greater than 100.4, or white blood cell count of greater than 12. Does have significant diabetes with A1c of 13 consistent with immune suppression. Continue with Bactrim and Flagyl x 24 hours. Repeat labs in a.m. and if remain unchanged will discharge home on orals. In agreement with H&P as documented earlier today.
[2024-01-19 16:50] LABS: Glucose,Whole Blood 184 mg/dL (70-110)
[2024-01-19 20:20] LABS: Glucose,Whole Blood 98 mg/dL (70-110)
[2024-01-19 21:08] LABS: Glucose,Whole Blood 78 mg/dL (70-110)
[2024-01-20] MEDS: ACETAMINOPHEN TAB 325 MG TAB PO PRN (04:09)
[2024-01-20 06:05] LABS: Glucose,Whole Blood 321 mg/dL (70-110)
[2024-01-20 08:58] LABS: Basophils # (A) 0.07 X 10*3/uL (0.00-0.10); Basophils % (A) 0.7 %; Eosinophils # (A) 0.12 X 10*3/uL (0.04-0.35); Eosinophils % (A) 1.2 %; HCT 34.6 % (37.2-46.3); HGB 11.3 g/dL (12.0-15.0); Lymphocytes % (A) 15.7 %; MCH 26.1 pg (27.0-32.0); MCHC 32.7 g/dL (32.0-37.0); MCV 79.9 FL (80.0-97.0); Mean Platelet Volume 12.6 FL (9.5-12.2); Monocytes # (A) 0.75 X 10*3/uL (0.20-1.00); Monocytes % (A) 7.4 %; NRBC Per 100 WBC 0 X 10*3/uL (0.00-0.01); Neutrophils # (A) 7.63 X 10*3/uL (1.80-7.70); Neutrophils % (A) 74.7 %; Platelet Count 226 X 10*3/uL (140-440); RBC 4.33 X 10*6/uL (4.10-5.20); RDW 13.8 % (11.5-14.5)
[2024-01-20 09:29] LABS: ALT 8 U/L (8-44); AST 11 U/L (13-35); Albumin 3.5 g/dL (3.8-4.9); Albumin/Globulin Ratio 1.67 Ratio (1.60-3.17); Alkaline Phosphatase 108 U/L (41-126); BUN/Creat Ratio 16.83 Ratio (12.00-20.00); Blood Urea Nitrogen 10.1 mg/dL (9.0-27.0); Calcium 8.1 mg/dL (8.7-10.3); Carbon Dioxide 20.8 mmol/L (21.6-31.8); Chloride 102 mmol/L (96-109); Globulin 2.1 g/dL (1.6-3.3); Glucose 330 mg/dL (70-110); Potassium 4.3 mmol/L (3.5-5.5); Sodium 134 mmol/L (135-145); Total Bilirubin 0.4 mg/dL (0.3-1.2); Total Protein 5.6 g/dL (6.2-8.2)
[2024-01-20] MEDS: LINEZOLID 600 MG in DEXTROSE/WATER 1 300ML.BAG IVPB SCH (10:20)
[2024-01-20] MEDS: CEFEPIME 2 GM in SODIUM CHLORIDE 0.9% 100 ML IVPB SCH (10:20)
--- NOTE | 2024-01-20 12:22 | CT ---
EXAMINATION TYPE: CT pelvis w con DATE OF EXAM: 01/20/2024 12:18 PM COMPARISON: 10/29/2023 CLINICAL INDICATION: Female, 28 years old with history of buttock abscess, immunsupressed; Buttock ab scess, immunosuppressed TECHNIQUE: Axial CT pelvis w con;Sagittal and coronal reformats were created on a separate workstati on. Contrast used:100 ml mL of Isovue 300 with IV Contrast, (none if empty) Oral contrast used: without Oral Contrast (none if empty) CT DLP: 2055.90 mGycm, Automated exposure control for dose reduction was used. FINDINGS: BLADDER: No evidence for wall thickening or mass given limitations of exam. REPRODUCTIVE: Unremarkable. ABDOMEN & PELVIS STOMACH AND BOWEL: No evidence of bowel obstruction. PERITONEUM/RETROPERITONEUM: No evidence of pneumoperitoneum or free fluid. VASCULATURE: No evidence of aortic aneurysm. MUSCULOSKELETAL: No acute osseous abnormalities LYMPH NODES: No gross evidence for lymphadenopathy. SOFT TISSUE/ABDOMINAL WALL: Left buttock inflammation/phlegmonous change , no organizing fluid collec tion at this time.. Fat-containing umbilical hernia. IMPRESSION: Left buttock inflammation/phlegmonous change , no organizing fluid collection at this time. Correlate for cellulitis. [facility], , 01/20/2024 12:20 PM
[2024-01-20 13:18] LABS: Glucose,Whole Blood 290 mg/dL (70-110)
--- NOTE | 2024-01-20 13:30 | P.PN ---
Subjective Progress Note Date: 01/20/24 (delayed charting seen at 0930) Preferred pronouns: He/him, they/them Patient is a 28 year old insulin dependent diabetic with probable POTS and GERD who presented with buttock abscess. On arrival to the ER patient was febrile with temperature of 100.2 and tachycardic with pulse of 114. Initial laboratory analysis was remarkable for white blood cell count of 11.6. Found to have a left buttock cellulitis. Due to allergies was started on Bactrim and Flagyl. Arrangements were made for admission. Patient seen and examined at bedside. Continues to have left buttock pain. Was very tachycardic last night could feel the palpitations. No shortness of breath. Overall not feeling well. Vital signs reviewed General: Nontoxic, no distress, appears at stated age Cardiovascular: S1S2 reg, no murmur Lungs: CTA bilateral, no rhonchi, no rales, no accessory muscle use Abdominal: Soft, nontender to palpation, no guarding Ext: No gross muscle atrophy, no edema b/l lower extremities, no contractures Neuro: CN II-XI grossly intact, no focal neuro deficits Psych: Alert, oriented, appropriate affect Derm: Left buttock erythema increasing in size, warmth, tenderness Assessment/Plan: Left buttock cellulitis with probable abscess and developing sepsis despite 24 hours of antibiotics -DC Bactrim. Start linezolid 600 mg IV every 12 hours due to history of anaphylaxis to vancomycin, start cefepime 2 g IV every 12 hours, continue Flagyl due to possible anaerobic infection given location -Check CT to rule out fistula formation and abscess requiring drainage -1 episode of hypotension overnight with blood pressure of 94/63. Increase IV fluids 220 cc/h given the setting of sepsis -Stat CBC and basic metabolic profile Diabetes mellitus, insulin requiring with A1c of 13.1 -Continue with NovoLog sliding scale, NovoLog 10 units with each meal, and Levemir 15 units twice daily will be increased to 17 units twice daily -Discussed with patient importance of following with Dr. Parisi for further insulin adjustments in the outpatient setting Due to failure to improve on antibiotics with development of increasing fevers and tachycardia patient will be transitioned from observation to inpatient due to cellulitis and abscess formation with sepsis in the setting of immunocompromise status due to A1c greater than 9 Imaging: CT pelvis ordered and reviewed: No definitive abscess Data Review: CBC and basic metabolic profile ordered and reviewed white blood cell count improved to 10.2, blood culture negative x 24 hours DVT prophylaxis: Lovenox Anticipated discharge date: Home in a.m. This dictation was prepared using [employer] voice recognition software. Though every attempt is made to correct errors during dictation some may still exist. Objective - Vital Signs Vital signs: Vital Signs Temp 98.4 F 01/20/24 07:55 Pulse 103 H 01/20/24 07:55 Resp 15 01/20/24 07:55 BP 99/65 01/20/24 07:55 Pulse Ox 100 01/20/24 07:55 FiO2 Intake & Output 01/19/24 01/20/24 01/20/24 18:59 06:59 18:59 Intake Total 763 360 236 Balance 763 360 236 Weight 100.244 kg Intake: IV 645 Invasive Line 1 20 Sodium Chloride 0.9% 1, 525 000 ml @ 75 mls/hr IV . [id number] ANIBAL Rx#:[id number] metroNIDAZOLE-NS PMX 500 100 mg In Saline 1 100ml.bag @ 100 mls/hr IVPB Q8H ANIBAL Rx#:[id number] Oral 118 360 236 Other: Voiding Method Toilet Toilet # Voids 2 2 - Labs CBC & Chem 7: 01/20/24 04:53 01/20/24 04:53 Labs: Abnormal Lab Results - Last 24 Hours (Table) 01/19/24 01/20/24 01/20/24 Range/Units 16:49 04:53 04:53 WBC 10.20 H (4.50-10.00) X 10*3/uL Hgb 11.3 L (12.0-15.0) g/dL Hct 34.6 L (37.2-46.3) % MCV 79.9 L (80.0-97.0) FL MCH 26.1 L (27.0-32.0) pg MPV 12.6 H (9.5-12.2) FL Sodium (135-145) mmol/L Carbon Dioxide (21.6-31.8) mmol/L Glucose (70-110) mg/dL POC Glucose (mg/dL) 184 H (70-110) mg/dL Hemoglobin A1c 13.1 H (<=6.0) % Calcium (8.7-10.3) mg/dL AST (13-35) U/L Total Protein (6.2-8.2) g/dL Albumin (3.8-4.9) g/dL 01/20/24 01/20/24 01/20/24 Range/Units 04:53 06:04 13:16 WBC (4.50-10.00) X 10*3/uL Hgb (12.0-15.0) g/dL Hct (37.2-46.3) % MCV (80.0-97.0) FL MCH (27.0-32.0) pg MPV (9.5-12.2) FL Sodium 134 L (135-145) mmol/L Carbon Dioxide 20.8 L (21.6-31.8) mmol/L Glucose 330 H (70-110) mg/dL POC Glucose (mg/dL) 321 H 290 H (70-110) mg/dL Hemoglobin A1c (<=6.0) % Calcium 8.1 L (8.7-10.3) mg/dL AST 11 L (13-35) U/L Total Protein 5.6 L (6.2-8.2) g/dL Albumin 3.5 L (3.8-4.9) g/dL Microbiology - Last 24 Hours (Table) 01/19/24 05:25 Blood Culture - Preliminary Blood
--- NOTE | 2024-01-20 14:25 | P.PN ---
Subjective Progress Note Date: 01/20/24 CHIEF COMPLAINT: Left buttock abscess HISTORY OF PRESENT ILLNESS: The patient is a 28-year-old female with with autism admitted for left buttock abscess. She reports just having nausea and vomiting after eating eggs this morning. She reports was mostly epigastric pain. No further bleeding below. Incidentally, additional studies were ordered by medicine team. She reports no increased pain of the left buttock. She has not contacted questions. REVIEW OF ORGAN SYSTEMS: Had nausea and vomiting this morning. No further fever or chills. No further bleeding. PHYSICAL EXAM: VITALS: Reviewed CONSTITUTIONAL: Well developed and in no acute distress. EYES: Conjuctivae without sclera icterus. Extraocular movements grossly intact. HEAD, EARS, NOSE, THROAT: Moist buccal mucosa. Head is atraumatic, normocephalic. Hears conversational speech. No nasal drainage. Poor dentition. RESPIRATORY: Non-labored respirations and equal bilateral excursions. No gross wheezes. CARDIOVASCULAR: Palpable 2+ radial pulses. ABDOMEN: Unremarkable MUSCULOSKELETAL: No clubbing cyanosis or edema SKIN: 3 cm induration along the left inferior lateral buttock with eschar. NEUROLOGIC: Cranial nerves II through XII grossly intact. No focal or lateralizing signs. PSYCH: Appropriate affect. Alert and oriented to person, place and time. Displays appropriate insight. CLINCAL LABS: Reviewed. WBC trending downward from 11,000 now over 10,000. Sugar glucose 290-330s. STUDIES: CT pelvis independently reviewed demonstrates umbilical hernia with fat-containing. Additionally, no fistula between abscess and the buttock noted. Inflammatory changes noted of the skin of the left buttock. No drainable a bscess. This is my independent interpretation. RADIOLOGY: CT report reviewed. Findings consistent with no organized collection. ASSESSMENT: 1. Left buttock abscess with sepsis 2. Currently controlled diabetes type 2, insulin-dependent with hyperglycemia 3. Dietary noncompliance for diabetes 4. Autism 5. Obesity due to excess calories, BMI 32.6 PLAN: 1. Patient still has hyperglycemia for which tight glycemic control advised. 2. Recommend sitz bath's twice a day for left buttock cellulitis. No surgical inventions or drainage needed due to superficial draining nature of wound. Objective - Vital Signs Vital signs: Vital Signs Temp 98.4 F 01/20/24 07:55 Pulse 103 H 01/20/24 07:55 Resp 15 01/20/24 07:55 BP 99/65 01/20/24 07:55 Pulse Ox 100 01/20/24 07:55 FiO2 Intake & Output 01/19/24 01/20/24 01/20/24 18:59 06:59 18:59 Intake Total 763 360 236 Balance 763 360 236 Weight 100.244 kg Intake: IV 645 Invasive Line 1 20 Sodium Chloride 0.9% 1, 525 000 ml @ 75 mls/hr IV . [id number] ANIBAL Rx#:[id number] metroNIDAZOLE-NS PMX 500 100 mg In Saline 1 100ml.bag @ 100 mls/hr IVPB Q8H ANIBAL Rx#:[id number] Oral 118 360 236 Other: Voiding Method Toilet Toilet Toilet # Voids 2 2 - Labs CBC & Chem 7: 01/20/24 04:53 01/20/24 04:53 Labs: Abnormal Lab Results - Last 24 Hours (Table) 01/19/24 01/20/24 01/20/24 Range/Units 16:49 04:53 04:53 WBC 10.20 H (4.50-10.00) X 10*3/uL Hgb 11.3 L (12.0-15.0) g/dL Hct 34.6 L (37.2-46.3) % MCV 79.9 L (80.0-97.0) FL MCH 26.1 L (27.0-32.0) pg MPV 12.6 H (9.5-12.2) FL Sodium (135-145) mmol/L Carbon Dioxide (21.6-31.8) mmol/L Glucose (70-110) mg/dL POC Glucose (mg/dL) 184 H (70-110) mg/dL Hemoglobin A1c 13.1 H (<=6.0) % Calcium (8.7-10.3) mg/dL AST (13-35) U/L Total Protein (6.2-8.2) g/dL Albumin (3.8-4.9) g/dL 01/20/24 01/20/24 01/20/24 Range/Units 04:53 06:04 13:16 WBC (4.50-10.00) X 10*3/uL Hgb (12.0-15.0) g/dL Hct (37.2-46.3) % MCV (80.0-97.0) FL MCH (27.0-32.0) pg MPV (9.5-12.2) FL Sodium 134 L (135-145) mmol/L Carbon Dioxide 20.8 L (21.6-31.8) mmol/L Glucose 330 H (70-110) mg/dL POC Glucose (mg/dL) 321 H 290 H (70-110) mg/dL Hemoglobin A1c (<=6.0) % Calcium 8.1 L (8.7-10.3) mg/dL AST 11 L (13-35) U/L Total Protein 5.6 L (6.2-8.2) g/dL Albumin 3.5 L (3.8-4.9) g/dL Microbiology - Last 24 Hours (Table) 01/19/24 05:25 Blood Culture - Preliminary Blood
[2024-01-20 17:00] LABS: Glucose,Whole Blood 124 mg/dL (70-110)
[2024-01-20 20:33] LABS: Glucose,Whole Blood 181 mg/dL (70-110)
[2024-01-21 06:00] LABS: Glucose,Whole Blood 235 mg/dL (70-110)
[2024-01-21 07:15] LABS: African American GFR (CKD) >90 (>60 ml/min/1.73 sqM); Anion Gap 8 mmol/L; Blood Urea Nitrogen 15 mg/dL (7-17); Calcium 8.5 mg/dL (8.4-10.2); Carbon Dioxide 17 mmol/L (22-30); Chloride 110 mmol/L (98-107); Glucose 239 mg/dL (74-99); Non-African American GFR(CKD) >90 (>60 ml/min/1.73 sqM); Sodium 135 mmol/L (137-145)
[2024-01-21 07:40] LABS: Potassium 5.5 mmol/L (3.5-5.1)
[2024-01-21 09:08] LABS: HCT 35.6 % (34.0-46.0); HGB 11.9 gm/dL (11.4-16.0); MCH 27.2 pg (25.0-35.0); MCHC 33.4 g/dL (31.0-37.0); MCV 81.4 fL (80.0-100.0); Mean Platelet Volume 9.3; Platelet Count 207 k/uL (150-450); RBC 4.37 m/uL (3.80-5.40); RDW 14.2 % (11.5-15.5); WBC 9.2 k/uL (3.8-10.6)
--- NOTE | 2024-01-21 11:05 | P.PN ---
Subjective Progress Note Date: 01/21/24 SURGICAL PROGRESS NOTE CHIEF COMPLAINT: Left buttock abscess HISTORY OF PRESENT ILLNESS: Patient has started to have drainage from the left buttock abscess. Drainage is purulent and bloody in color. Patient continues to have pain and discomfort in the left buttocks. Patient did have a low-grade temp of 100.2 this morning had been tachycardic during the night. WBC has normalized at 9.2 blood sugar 235. Hemoglobin A1c 13. CT on admission had reported no fluid collection. Nursing staff unable to get the sitz bath PHYSICAL EXAM: VITAL SIGNS: Reviewed. GENERAL: Well-developed in no acute distress. Skin: Left buttocks with erythema area of induration and fluctuance. Purulent bloody drainage noted on the bandage. Tender with palpation. ASSESSMENT: 1. Left buttock abscess 2. Diabetes mellitus with uncontrolled blood sugars PLAN: -Continue antibiotics -Continue supportive care -Encouraged patient to shower the area -Continue to monitor -Further recommendations forthcoming per surgeon Physician Development Educator note has been reviewed by physician. Signing provider agrees with the documented findings, assessment, and plan of care. Objective - Vital Signs Vital signs: Vital Signs Temp 97.6 F 01/21/24 09:45 Pulse 95 01/21/24 07:15 Resp 17 01/21/24 07:15 BP 98/64 01/21/24 07:15 Pulse Ox 96 01/21/24 07:15 FiO2 Intake & Output 01/20/24 01/21/24 01/21/24 18:59 06:59 18:59 Intake Total 776 350 Balance 776 350 Intake: Oral 776 350 Other: Voiding Method Toilet Toilet # Voids 4 2 # Bowel Movements 0 - Labs CBC & Chem 7: 01/21/24 08:40 01/21/24 05:39 Labs: Abnormal Lab Results - Last 24 Hours (Table) 01/20/24 01/20/24 01/20/24 Range/Units 13:16 16:57 20:32 Sodium (137-145) mmol/L Potassium (3.5-5.1) mmol/L Chloride (98-107) mmol/L Carbon Dioxide (22-30) mmol/L Glucose (74-99) mg/dL POC Glucose (mg/dL) 290 H 124 H 181 H (70-110) mg/dL 01/21/24 01/21/24 Range/Units 05:39 05:55 Sodium 135 L (137-145) mmol/L Potassium 5.5 H (3.5-5.1) mmol/L Chloride 110 H (98-107) mmol/L Carbon Dioxide 17 L (22-30) mmol/L Glucose 239 H (74-99) mg/dL POC Glucose (mg/dL) 235 H (70-110) mg/dL Microbiology - Last 24 Hours (Table) 01/20/24 09:41 Gram Stain - Preliminary Buttock Wound Culture - Preliminary Presumptive MRSA 01/19/24 05:25 Blood Culture - Preliminary Blood
[2024-01-21 12:08] LABS: Glucose,Whole Blood 223 mg/dL (70-110)
[2024-01-21 12:39] VITALS: BMI 32.6
--- NOTE | 2024-01-21 13:43 | P.PN ---
Subjective Progress Note Date: 01/21/24 Hospital Course: 28-year-old patient with history of insulin-dependent diabetes, probable POTS, GERD who presented with sepsis secondary to buttock cellulitis. She was initially started on Bactrim and Flagyl, admitted for further management. Patient's antibiotics were broadened due to concern for sepsis, she was started on linezolid, cefepime, Flagyl, CT chest was requested to rule out deeper infection. Revealed cellulitis. Patient spiked fever on 08/20, no leukocytosis. Wound cultures growing MRSA. Patient was seen and examined at bedside, complains of burning-like sensation in her buttock, she did have an episode of vomiting on 01/19, otherwise denies nausea and vomiting, dizziness, lightheadedness, abdominal pain Pertinent positives and negatives as discussed above, a complete review of systems was performed and all other systems are negative. Vitals Signs Reviewed. General: [nontoxic], [no distress], [appears at stated age] Derm: [warm], [dry] Head: [atraumatic], [normocephalic], [symmetric] Eyes: [EOMI], [no lid lag], [anicteric sclera] Mouth: [no lip lesion], [mucus membranes moist] Cardiovascular: [S1S2 reg], [no murmur] Lungs: [CTA bilateral], [no rhonchi, no rales] , [no accessory muscle use] Abdominal: [soft], [ nontender to palpation], [no guarding], [no appreciable organomegaly] Ext: [no gross muscle atrophy], [no edema], [no contractures] Neuro: [ CN II-XI grossly intact], [no focal neuro deficits] Psych: [Alert], [oriented], [appropriate affect] Derm: Left buttock erythema, with warmth and tenderness Data Reviewed Today: Pertinent Labs: No leukocytosis, hypernatremia persistent, potassium 5.5, normal creatinine, persistent hyperglycemia Imaging: CT pelvis: Left buttock inflammation/phlegmonous change with no organizing fluid collection Assessment and Plan: Sepsis secondary to left buttock MRSA cellulitis -Continue current antibiotics SLT 01/20/2024, patient spiked fever on 01/20, leukocytosis resolved, will consider ID consultation should patient continue spiking fever -Continue IV fluids -Continue daily blood work -Surgery following, recommended sitz bath, conservative management with antibiotics -Blood cultures negative to date -Wound cultures with MRSA Uncontrolled diabetes mellitus -Increase Levemir to 17 twice daily, continue mealtime and sliding scale as ordered -Patient will follow-up with Dr. Parisi as outpatient DVT ppx: Rosan[place] Code status: Full Anticipated discharge place: Home Anticipated discharge time: 1 to 2 days Objective - Vital Signs Vital signs: Vital Signs Temp 97.6 F 01/21/24 09:45 Pulse 95 01/21/24 07:15 Resp 17 01/21/24 07:15 BP 98/64 01/21/24 07:15 Pulse Ox 96 01/21/24 07:15 FiO2 Intake & Output 01/20/24 01/21/24 01/21/24 18:59 06:59 18:59 Intake Total 776 350 Balance 776 350 Weight 100.244 kg Intake: Oral 776 350 Other: Voiding Method Toilet Toilet Toilet # Voids 4 2 # Bowel Movements 0 - Labs CBC & Chem 7: 01/21/24 08:40 01/21/24 05:39 Labs: Abnormal Lab Results - Last 24 Hours (Table) 01/20/24 01/20/24 01/21/24 Range/Units 16:57 20:32 05:39 Sodium 135 L (137-145) mmol/L Potassium 5.5 H (3.5-5.1) mmol/L Chloride 110 H (98-107) mmol/L Carbon Dioxide 17 L (22-30) mmol/L Glucose 239 H (74-99) mg/dL POC Glucose (mg/dL) 124 H 181 H (70-110) mg/dL 01/21/24 01/21/24 Range/Units 05:55 12:07 Sodium (137-145) mmol/L Potassium (3.5-5.1) mmol/L Chloride (98-107) mmol/L Carbon Dioxide (22-30) mmol/L Glucose (74-99) mg/dL POC Glucose (mg/dL) 235 H 223 H (70-110) mg/dL Microbiology - Last 24 Hours (Table) 01/19/24 05:25 Blood Culture - Preliminary Blood 01/20/24 09:41 Gram Stain - Preliminary Buttock Wound Culture - Preliminary Presumptive MRSA
[2024-01-21 14:24] VITALS: BP 121/85; PULSE 91; RESP 16; TEMP 98.4
[2024-01-21 17:10] LABS: Glucose,Whole Blood 131 mg/dL (70-110)
[2024-01-21] MEDS ORDERED: INSULIN DETEMIR (LEVEMIR) 100 UNIT/ML SYR SQ SCH (21:00)
--- NOTE | 2024-01-22 09:22 | P.DS ---
Providers Date of admission: 01/19/24 04:58 Attending physician: Francy Presley MD Consults: 01/21/24 08:21 Consult Physician Routine Consulting Provider: Kodi Weiner Consult Reason/Comments: buttock abscess Do you want consulting provider notified?: Already Contacted Primary care physician: Nathanael Badillo [facility] Course: Patient left AMA Discharge Diagnosis: Sepsis secondary to left buttock MRSA cellulitis Hospital Course: 28-year-old patient with history of insulin-dependent diabetes, probable POTS, GERD who presented with sepsis secondary to buttock cellulitis. She was initially started on Bactrim and Flagyl, admitted for further management. Patient's antibiotics were broadened due to concern for sepsis, she was started on linezolid, cefepime, Flagyl, CT chest was requested to rule out deeper infection. Revealed cellulitis. Wound cultures growing MRSA. Patient continued to spike fever on 01/21/2024, no leukocytosis was present at that time. Patient was updated on blood work results and plan of management with continuing IV antibiotics for now, following up final blood and wound cultures, monitoring for further fevers, leukocytosis and potential need of movement of ID specialist. She requested to leave AMA 01/21/2024 4 in the evening. No physical exam performed as patient left AMA A total of 35 minutes of time were spent preparing this complex discharge summary. Patient was discharged on 01/21/2024 Patient Condition at Discharge: Stable Plan - Discharge Summary Discharge Rx Participant: No New Discharge Prescriptions: No Action Insulin Lispro [humaLOG Kwikpen] See Protocol SQ TID-W/MEALS Insulin Glargine,Hum.rec.anlog [Lantus Solostar Pen] 15 units SQ BID Discharge Medication List Insulin Glargine,Hum.rec.anlog [Lantus Solostar Pen] 15 units SQ BID 10/28/23 [History] Insulin Lispro [humaLOG Kwikpen] See Protocol SQ TID-W/MEALS 10/28/23 [History] Follow up Appointment(s)/Referral(s): Nathanael Badillo DO [Primary Care Provider] - 1-2 days Discharge Disposition: LEFT AGAINST MEDICAL ADVICE
== END 2024-01-21 18:15 | disposition left against medical advice (07) | DRG 720 ==
LOC: EDSEX → EC 23:24 → 6NMEDSUR 01-19 04:57 → OBSVTOIN 01-19 04:58 → 6NMEDSUR 01-19 16:57
PROVIDERS: ADMIT Internal Medicine; ATTEND Internal Medicine
DX: A41.02 Sepsis due to Methicillin resistant Staphylococcus aureus (principal); L02.31 Cutaneous abscess of buttock; L03.317 Cellulitis of buttock; K21.9 Gastro-esophageal reflux disease without esophagitis; E11.65 Type 2 diabetes mellitus with hyperglycemia; F84.0 Autistic disorder; F43.10 Post-traumatic stress disorder, unspecified; F90.9 Attention-deficit hyperactivity disorder, unspecified type; F41.9 Anxiety disorder, unspecified; F25.9 Schizoaffective disorder, unspecified; E87.20 Acidosis, unspecified; D84.9 Immunodeficiency, unspecified; F17.200 Nicotine dependence, unspecified, uncomplicated; E66.9 Obesity, unspecified; Z88.0 Allergy status to penicillin; Z96.41 Presence of insulin pump (external) (internal); Z88.8 Allergy status to other drugs, medicaments and biological substances; Z88.1 Allergy status to other antibiotic agents; Z68.32 Body mass index [BMI] 32.0-32.9, adult; Z91.119 Patient's noncompliance with dietary regimen due to unspecified reason; Z86.14 Personal history of Methicillin resistant Staphylococcus aureus infection; Z79.4 Long term (current) use of insulin
CPT/HCPCS: 36415; 72193; 80048; 80053; 83036; 83605; 85025; 85027; 86140; 87040; 87070; 87077; 87186; 87205; 96365; 96366; 96375; 96376; 99285

== ENCOUNTER → 2024-06-20 | Outpatient (CLI) | payer OTHER ==
[2024-06-20 18:17] LABS: Basophils # (A) 0.09 X 10*3/uL (0.00-0.10); Eosinophils # (A) 0.11 X 10*3/uL (0.04-0.35); Eosinophils % (A) 1.2 %; HCT 40.2 % (37.2-46.3); HGB 13.3 g/dL (12.0-15.0); Lymphocytes % (A) 27.7 %; MCH 27.3 pg (27.0-32.0); MCHC 33.1 g/dL (32.0-37.0); MCV 82.4 FL (80.0-97.0); Mean Platelet Volume 11.1 FL (9.5-12.2); Monocytes % (A) 5.5 %; NRBC Per 100 WBC 0 X 10*3/uL (0.00-0.01); Neutrophils # (A) 5.78 X 10*3/uL (1.80-7.70); Neutrophils % (A) 64.3 %; Platelet Count 356 X 10*3/uL (140-440); RBC 4.88 X 10*6/uL (4.10-5.20); RDW 13.4 % (11.5-14.5); WBC 9.01 X 10*3/uL (4.50-10.00)
[2024-06-20 19:57] LABS: Microalbumin Creatinine Ratio <84 mg/g Cr (0-30); Urine Creatinine 14.3 mg/dL (28.0-217.0)
[2024-06-20 20:55] LABS: ALT 12 U/L (8-44); AST 19 U/L (13-35); Albumin 4.3 g/dL (3.8-4.9); Albumin/Globulin Ratio 1.39 Ratio (1.60-3.17); Alkaline Phosphatase 113 U/L (41-126); BUN/Creat Ratio 12.33 Ratio (12.00-20.00); Blood Urea Nitrogen 7.4 mg/dL (9.0-27.0); Calcium 9.7 mg/dL (8.7-10.3); Chloride 103 mmol/L (96-109); Chol/HDL Ratio 3.33 Ratio; Globulin 3.1 g/dL (1.6-3.3); Glucose 106 mg/dL (70-110); HCG,Quantitative Serum <3.0 mIU/mL (0.0-6.0); LDL Cholesterol,Calculated 94.6 mg/dL (0.0-131.0); Magnesium 1.7 mg/dL (1.5-2.4); Potassium 4.6 mmol/L (3.5-5.5); Sodium 143 mmol/L (135-145); Total Bilirubin 0.3 mg/dL (0.3-1.2); Total Protein 7.4 g/dL (6.2-8.2); VLDL Calculation 9.66 mg/dL (5.00-40.00)
[2024-06-20 22:28] LABS: Follicle Stimulating Hormone 3.9 mIU/mL; Luteinizing Hormone 2.7 mIU/mL
--- NOTE | 2024-06-21 15:16 | XR ---
EXAMINATION TYPE: XR knee complete RT DATE OF EXAM: 06/20/2024 2:18 PM COMPARISON: 08/31/2023 CLINICAL INDICATION: Female, 28 years old with history of M25.561 PAIN IN RT KNEE, pain TECHNIQUE: XR knee complete RT views were obtained FINDINGS: There is no acute fracture/dislocation. The tri-compartment joint spaces appear within no rmal limits. The overlying soft tissue appears unremarkable. Bone island noted medial femoral condyl e unchanged from prior study. IMPRESSION: There is no acute fracture or dislocation.ICD 10 NO FRACTURE, INITIAL EVALUATION [facility], , 06/21/2024 3:14 PM
== END | disposition home or self-care (01) ==
LOC: LABWHC1 12:48
PROVIDERS: ATTEND Internal Medicine
DX: E10.65 Type 1 diabetes mellitus with hyperglycemia (principal); E10.8 Type 1 diabetes mellitus with unspecified complications; M25.561 Pain in right knee; N91.2 Amenorrhea, unspecified; F64.9 Gender identity disorder, unspecified
CPT/HCPCS: 36415; 80053; 80061; 82043; 82570; 82627; 82670; 83001; 83002; 83036; 83735; 84146; 84402; 84403; 84443; 84681; 84702; 85025

== ENCOUNTER → 2024-06-20 | Outpatient (CLI) | payer OTHER ==
--- NOTE | 2024-06-20 14:12 | US ---
EXAMINATION TYPE: US pelvis complete transvag DATE OF EXAM: 06/20/2024 COMPARISON: NONE CLINICAL INDICATION: Female, 28 years old with history of Z87.42 PERSONAL HISTORY OF OTH DISEASES OF THE FEM; Transgender - took HRT November 2022 and discontinued in February of 2024 due to pelvic pain a nd nausea. LMP April of 2022. TECHNIQUE: Transvaginal (TV) and Transabdominal (TA) . Transabdominal grayscale sonographic images of the pelvis were acquired. Transvaginal sonographic im ages were medically necessary to better assess the following anatomy: Ovaries Doppler imaging: Not performed. FINDINGS: Date of LMP: April 2022 EXAM MEASUREMENTS: Uterus: 7.4 x 3.6 x 3.7 cm Endometrial Stripe: 0.4 cm Right Ovary: 3.3 x 1.6 x 1.8 cm Left Ovary: 1.9 x 1.6 x 1.5 cm 1. Uterus: Anteverted wnl 2. Endometrium: ? Cystic area within = 0.3 x 0.2 x 0.3 cm 3. Right Ovary: ? Complex cyst = 1.8 x 1.1 x 1.3 cm 4. Left Ovary: wnl 5. Bilateral Adnexa: wnl 6. Posterior cul-de-sac: wnl IMPRESSION: 1. Cystic focus within the endometrium is of uncertain etiology. Correlate with beta hCG. 2. Complex cyst right ovary measure 5 hemorrhagic cyst. O-RADS 2021 [email or web address] [facility], , 06/20/2024 2:09 PM
== END | disposition home or self-care (01) ==
LOC: RADUSWWP 13:23
PROVIDERS: ATTEND Internal Medicine
DX: N83.201 Unspecified ovarian cyst, right side (principal); N91.2 Amenorrhea, unspecified; Z87.42 Personal history of other diseases of the female genital tract
CPT/HCPCS: 76830; 76856